=== PATIENT | female | born 1975 | race American Indian/Alaskan Native ===

== ENCOUNTER 2016-12-09 20:07 | Emergency (ER) | payer SELFPAY ==
[2016-12-09 20:14] VITALS: BP 128/75
[2016-12-09] MEDS ORDERED: Sodium Chloride 0.9% 1,000 ML IV ONE ×2 (20:17→22:25)
--- NOTE | 2016-12-09 20:38 | EDM.PDOC ---
ED HPI RENAL/ - General Chief Complaint: Genitourinary Problem Stated Complaint: AMB Time Seen by Provider: 12/09/16 20:30 Source of Information: Reports: Patient History Limitations: Reports: No limitations - History of Present Illness INITIAL COMMENTS - FREE TEXT/NARRATIVE: This 41 yo female patient reports to the ED by [facility] due to lower abdominal pain radiating to her back. The patient reports her symptoms started this morning at 0430, but the patient was taking care of her grandson all day and could not get into the clinic. The patient reports she also started to have diarrhea this morning which has been going around her family. The patient reports she had similar symptoms in July and was diagnosed with a bladder infection. Symptom Onset Date: 12/09/16 Symptom Onset Time: 04:30 Timing/Duration: Reports: Constant, Getting worse Location: Reports: generalized (lower abdomen ratiating to her back) Quality: Reports: ache, burning, cramping Severity: severe Associated Symptoms: Reports: burning, dysuria, diarrhea - Related Data Allergies/ADRs: Allergies Allergy/AdvReac Type Severity Reaction Status Date / Time No Known Allergies Allergy Verified 12/09/16 20:14 Home Meds: Home Meds . [No Known Home Meds] 07/23/16 [History] Past Medical History HEENT History: Reports: Impaired vision - Past Surgical History Female Surgical History: Reports: section Social & Family History - Tobacco Use Smoking Status *Q: Current Every Day Smoker Years of Tobacco use: 30 Packs/Tins Daily: 0.3 Second Hand Smoke Exposure: Yes - Caffeine Use Caffeine Use: Reports: Coffee, Energy drinks, Soda, Tea - Recreational Drug Use Recreational Drug Use: No ED ROS GENERAL - Review of Systems Review Of Systems: ROS reveals no pertinent complaints other than HPI. ED EXAM, RENAL/ - Physical Exam Exam: See Below Exam Limited By: No limitations General Appearance: alert, WD/WN, moderate distress Eye Exam: bilateral eye: EOMI, normal inspection, PERRL Ears: normal external exam, normal canal, hearing grossly normal, normal TMs Nose: normal inspection, normal mucosa, no blood Throat/Mouth: Normal inspection, Normal lips, Normal teeth, Normal gums, Normal oropharynx, Normal voice, No airway compromise Head: atraumatic, normocephalic Neck: normal inspection, supple, non-tender, full range of motion Respiratory/Chest: no respiratory distress, lungs clear, normal breath sounds, no accessory muscle use, chest non-tender Cardiovascular: normal peripheral pulses, regular rate, rhythm, no edema, no gallop, no JVD, no murmur, no rub GI/Abdominal: normal bowel sounds, soft, no organomegaly, no distention, no abnormal bruit, no mass, tender (generalized lower abdominal tenderness) (Female) Exam: Deferred Rectal (Female) Exam: Deferred Back Exam: normal inspection, full range of motion, NT Extremities: normal inspection, normal range of motion, non-tender, normal capillary refill, no pedal edema Neurological: alert, oriented, CN II-XII intact, normal cognition, normal gait, normal reflexes, no motor/sensory deficits Psychiatric: normal affect, normal mood Skin Exam: Warm, Dry, Intact, Normal color, No rash Lymphatic: no adenopathy Course - Vital Signs Last Recorded V/S: Last Vital Signs Temp 36.1 C 12/09/16 20:09 Pulse 102 H 12/09/16 20:09 Resp 20 12/09/16 20:09 BP 128/75 12/09/16 20:09 Pulse Ox 96 12/09/16 20:09 - Orders/Labs/Meds Orders: Active Orders 24 hr Category Date Time Status Sodium Chloride 0.9% [Normal Saline] 1,000 ml Med 12/09/16 22:25 Ordered IV .BOLUS NG [Nasogastric Orogastric Tube Insertion] [OM.PC] Oth 12/09/16 22:25 Ordered Routine Medication Orders Sodium Chloride (Normal Saline) 1,000 mls @ 999 mls/hr IV .BOLUS ONE Stop: 12/09/16 23:25 Last Admin: 12/09/16 22:28 Dose: 999 mls/hr Labs: Laboratory Tests 12/09/16 12/09/16 12/09/16 Range/Units 20:20 20:20 21:25 WBC 8.9 (5.0-10.0) 10^3/uL RBC 4.10 L (4.2-5.4) 10^6/uL Hgb 10.3 L (12.0-16.0) g/dL Hct 32.6 L (37.0-47.0) % MCV 79.5 L (80-100) fL MCH 25.1 L (27.0-34.0) pg MCHC 31.6 L (33.0-35.0) g/dL Plt Count 311 (150-450) 10^3/uL Neut % (Auto) 91.5 H (42.2-75.2) % Lymph % (Auto) 3.1 L (20.5-50.1) % [place] % (Auto) 5.3 (2-8) % Eos % (Auto) 0.0 L (1.0-3.0) % Baso % (Auto) 0.1 (0.0-1.0) % Sodium 134 L (135-145) mmol/L Potassium 3.4 L (3.6-5.0) mmol/L Chloride 102 (101-111) mmol/L Carbon Dioxide 22.0 (21.0-31.0) mmol/L Anion Gap 13.4 BUN 12 (7-18) mg/dL Creatinine 0.7 (0.6-1.3) mg/dL Est Cr Clr Drug Dosing 87.49 mL/min Estimated GFR (MDRD) > 60 BUN/Creatinine Ratio 17.14 Glucose 98 (74-105) mg/dL Calcium 8.6 (8.4-10.2) mg/dl Total Bilirubin 0.3 (0.2-1.0) mg/dL AST 27 (10-42) IU/L ALT 16 (10-60) IU/L Alkaline Phosphatase 53 (42-121) IU/L Total Protein 8.0 (6.7-8.2) g/dl Albumin 4.4 (3.2-5.5) g/dl Globulin 3.6 Albumin/Globulin Ratio 1.22 Urine Color (YELLOW) Urine Appearance (CLEAR) Urine pH (5.0-9.0) Ur Specific [place] (1.005-1.030) Urine Protein (NEGATIVE) Urine Glucose (UA) (NEGATIVE) Urine Ketones (NEGATIVE) Urine Occult Blood (NEGATIVE) Urine Nitrite (NEGATIVE) Urine Bilirubin (NEGATIVE) Urine Urobilinogen (0.2-1.0) mg/dL Ur Leukocyte Esterase (NEGATIVE) Urine RBC /HPF Urine WBC (0-5/HPF) /HPF Ur Epithelial Cells /HPF Urine Bacteria (0-FEW/HPF) /HPF Urine HCG, Qual Urine Opiates Screen Negative (NEGATIVE) Ur Oxycodone Screen Negative (NEGATIVE) Urine Methadone Screen Negative (NEGATIVE) Ur Barbiturates Screen Negative (NEGATIVE) U Tricyclic Antidepress Negative (NEGATIVE) Ur Phencyclidine Scrn Negative (NEGATIVE) Ur Amphetamine Screen Negative (NEGATIVE) U Methamphetamines Scrn Negative (NEGATIVE) Urine MDMA Screen Negative (NEGATIVE) U Benzodiazepines Scrn Negative (NEGATIVE) Urine Cocaine Screen Negative (NEGATIVE) U Marijuana (THC) Screen Negative (NEGATIVE) 12/09/16 12/09/16 Range/Units 21:25 21:25 WBC (5.0-10.0) 10^3/uL RBC (4.2-5.4) 10^6/uL Hgb (12.0-16.0) g/dL Hct (37.0-47.0) % MCV (80-100) fL MCH (27.0-34.0) pg MCHC (33.0-35.0) g/dL Plt Count (150-450) 10^3/uL Neut % (Auto) (42.2-75.2) % Lymph % (Auto) (20.5-50.1) % [place] % (Auto) (2-8) % Eos % (Auto) (1.0-3.0) % Baso % (Auto) (0.0-1.0) % Sodium (135-145) mmol/L Potassium (3.6-5.0) mmol/L Chloride (101-111) mmol/L Carbon Dioxide (21.0-31.0) mmol/L Anion Gap BUN (7-18) mg/dL Creatinine (0.6-1.3) mg/dL Est Cr Clr Drug Dosing mL/min Estimated GFR (MDRD) BUN/Creatinine Ratio Glucose (74-105) mg/dL Calcium (8.4-10.2) mg/dl Total Bilirubin (0.2-1.0) mg/dL AST (10-42) IU/L ALT (10-60) IU/L Alkaline Phosphatase (42-121) IU/L Total Protein (6.7-8.2) g/dl Albumin (3.2-5.5) g/dl Globulin Albumin/Globulin Ratio Urine Color Light yellow (YELLOW) Urine Appearance Clear (CLEAR) Urine pH 5.5 (5.0-9.0) Ur Specific [place] <= 1.005 (1.005-1.030) Urine Protein Negative (NEGATIVE) Urine Glucose (UA) Negative (NEGATIVE) Urine Ketones Negative (NEGATIVE) Urine Occult Blood Moderate H (NEGATIVE) Urine Nitrite Negative (NEGATIVE) Urine Bilirubin Negative (NEGATIVE) Urine Urobilinogen 0.2 (0.2-1.0) mg/dL Ur Leukocyte Esterase Negative (NEGATIVE) Urine RBC 0-5 /HPF Urine WBC 0-5 (0-5/HPF) /HPF Ur Epithelial Cells Few /HPF Urine Bacteria Few (0-FEW/HPF) /HPF Urine HCG, Qual Negative Urine Opiates Screen (NEGATIVE) Ur Oxycodone Screen (NEGATIVE) Urine Methadone Screen (NEGATIVE) Ur Barbiturates Screen (NEGATIVE) U Tricyclic Antidepress (NEGATIVE) Ur Phencyclidine Scrn (NEGATIVE) Ur Amphetamine Screen (NEGATIVE) U Methamphetamines Scrn (NEGATIVE) Urine MDMA Screen (NEGATIVE) U Benzodiazepines Scrn (NEGATIVE) Urine Cocaine Screen (NEGATIVE) U Marijuana (THC) Screen (NEGATIVE) Meds: Medications Generic Name Dose Route Start Last Admin Trade Name Freq PRN Reason Stop Dose Admin Sodium Chloride 1,000 mls @ 999 mls/hr 12/09/16 22:25 12/09/16 22:28 Normal Saline IV 12/09/16 23:25 999 mls/hr .BOLUS ONE Administration Discontinued Medications Generic Name Dose Route Start Last Admin Trade Name Freq PRN Reason Stop Dose Admin Hydromorphone HCl 1 mg 12/09/16 22:23 12/09/16 22:28 Dilaudid IVPUSH 12/09/16 22:24 1 mg ONETIME ONE Administration Sodium Chloride 1,000 mls @ 999 mls/hr 12/09/16 20:17 12/09/16 20:24 Normal Saline IV 12/09/16 21:17 999 mls/hr .BOLUS ONE Administration Iopamidol 100 ml 12/09/16 21:53 12/09/16 22:27 Isovue-300 (61%) IVPUSH 12/09/16 21:54 100 ml ONETIME ONE Administration Ondansetron HCl 4 mg 12/09/16 22:31 12/09/16 22:35 Zofran IV 12/09/16 22:32 4 mg ONETIME ONE Administration - Radiology Interpretation Free Text/Narrative:: CT abdomen - Small bowel obstruction and mild appendicitis per V-rad report. Departure - Departure Time of Disposition: 22:56 Disposition: DC/Tfer to Acute Hospital 02 Condition: fair Clinical Impression: Small bowel obstruction Appendicitis Qualifiers: Appendicitis type: unspecified Qualified Code(s): K37 - Unspecified appendicitis Forms: ED Department Discharge, Interfacility Transfer EMTALA Care Plan Goals: Discussed the history, examination, lab and CT results with Dr. Torrez ([facility] ED provider in [place]). Dr. Torrez accepted the patient for continued evaluation and further management. The patient will be transferred by [facility]. - My Orders Last 24 Hours: My Active Orders 12/09/16 22:25 Sodium Chloride 0.9% [Normal Saline] 1,000 ml IV .BOLUS NG [Nasogastric Orogastric Tube Insertion] [OM.PC] Routine - Assessment/Plan Last 24 Hours: My Active Orders 12/09/16 22:25 Sodium Chloride 0.9% [Normal Saline] 1,000 ml IV .BOLUS NG [Nasogastric Orogastric Tube Insertion] [OM.PC] Routine
[2016-12-09 20:46] LABS: CHLORIDE,CL 102 mmol/L (101-111); SODIUM,NA 134 mmol/L (135-145)
[2016-12-09] MEDS ORDERED: Iopamidol 612 MG/ML 100 ML Bottle IVPUSH ONE (21:53)
[2016-12-09] MEDS ORDERED: HYDROmorphone 1 MG/ML Syringe IVPUSH ONE (22:23)
[2016-12-09] MEDS ORDERED: Ondansetron 4 MG/2 ML SDV IV ONE (22:31)
== END 2016-12-09 23:45 ==
LOC: DL.ED 20:07
DX: K37 Unspecified appendicitis (principal); K56.60 Unspecified intestinal obstruction; F17.210 Nicotine dependence, cigarettes, uncomplicated
CPT/HCPCS: 36415; 74177; 80053; 80305; 81001; 81025; 85025; 96361; 96374; 96375; 99285; J1170; J2405; J7030; Q9967; 99284

== ENCOUNTER 2019-02-09 23:44 | Inpatient (IN) | payer SELFPAY ==
[2019-02-10] MEDS ORDERED: Sodium Chloride 0.9% 1,000 ML IV ONE (00:06)
[2019-02-10] MEDS: Sodium Chloride 0.9% 10 ML Syringe FLUSH PRN (00:15)
--- NOTE | 2019-02-10 00:26 | EDM.PDOC ---
ED HPI GENERAL MEDICAL PROBLEM - General Chief Complaint: Flank Pain Stated Complaint: KIDNEY PAIN [id number] Time Seen by Provider: 02/10/19 00:26 Source of Information: Reports: Patient, RN, RN Notes Reviewed History Limitations: Reports: No Limitations - History of Present Illness INITIAL COMMENTS - FREE TEXT/NARRATIVE: Pt to ER with c/o abdominal pain and bilateral flank pain. Patient states she noticed some burning with urination yesterday and it has progressively gotten worse. Rates pain 8/10. Admits to chills. Denies N/V/D. States she is currently having her period, and voiding very small amounts. Denies kidney stones in the past. Onset: Gradual Duration: Constant, Getting Worse Location: Reports: Abdomen, Back Quality: Reports: Burning, Sharp, Throbbing Severity: Moderate Improves with: Reports: None Worsens with: Reports: None Associated Symptoms: Reports: Fever/Chills Flank Pain Score (Numeric/FACES): 7 Headache Pain Score (Numeric/FACES): 6 - Related Data Allergies Allergy/AdvReac Type Severity Reaction Status Date / Time No Known Allergies Allergy Verified 02/09/19 23:49 Home Meds: Home Meds . [No Known Home Meds] 07/23/16 [History] Past Medical History HEENT History: Reports: Impaired Vision - Past Surgical History Female Surgical History: Reports: Section Social & Family History - Family History Family Medical History: Noncontributory - Tobacco Use Smoking Status *Q: Current Some Day Smoker Years of Tobacco use: 14 Packs/Tins Daily: 4 - Caffeine Use Caffeine Use: Reports: Coffee, Soda, Tea - Recreational Drug Use Recreational Drug Use: No ED ROS GENERAL - Review of Systems Review Of Systems: ROS reveals no pertinent complaints other than HPI. ED EXAM, RENAL/ - Physical Exam Exam: See Below Exam Limited By: No Limitations General Appearance: Alert, WD/WN, Moderate Distress Eye Exam: Bilateral Eye: EOMI, Normal Inspection Ears: Normal External Exam, Hearing Grossly Normal Nose: Normal Inspection Throat/Mouth: Normal Inspection, Normal Voice, No Airway Compromise Head: Atraumatic, Normocephalic Neck: Normal Inspection, Supple, Non-Tender, Full Range of Motion Respiratory/Chest: No Respiratory Distress, Lungs Clear, Normal Breath Sounds, No Accessory Muscle Use, Chest Non-Tender Cardiovascular: Normal Peripheral Pulses, Regular Rate, Rhythm, No Edema, No Gallop, No JVD, No Murmur, No Rub GI/Abdominal: Normal Bowel Sounds, Soft, Tender (Female) Exam: Deferred Rectal (Female) Exam: Deferred Back Exam: CVA Tenderness (L), CVA Tenderness (R), Decreased Range of Motion Extremities: Normal Inspection, Normal Range of Motion, Non-Tender, No Pedal Edema, Normal Capillary Refill Neurological: Alert, Oriented, CN II-XII Intact, Normal Cognition, Normal Gait, Normal Reflexes, No Motor/Sensory Deficits Psychiatric: Anxious, Tearful Skin Exam: Warm, Dry, Intact, Normal Color, No Rash Lymphatic: No Adenopathy Course - Vital Signs Last Recorded V/S: Last Vital Signs Temp 98.2 F 02/09/19 23:54 Pulse 104 H 02/09/19 23:54 Resp 18 02/09/19 23:54 BP 135/72 02/09/19 23:54 Pulse Ox 100 02/09/19 23:54 - Orders/Labs/Meds Orders: Active Orders 24 hr Category Date Time Status Peripheral IV Care [RC] . DIRECTED Care 02/10/19 00:06 Active CULTURE BLOOD [BC] Stat Lab 02/10/19 02:10 Ordered CULTURE BLOOD [BC] Stat Lab 02/10/19 02:10 Ordered CULTURE URINE [RM] Routine Lab 02/09/19 23:51 Received LACTIC ACID [CHEM] Stat Lab 02/10/19 02:09 Ordered Sodium Chloride 0.9% [Saline Flush] Med 02/10/19 00:05 Active 10 ml FLUSH ASDIRECTED PRN Blood Culture x2 Reflex Set [OM.PC] Stat Oth 02/10/19 02:10 Ordered Peripheral IV Insertion Adult [OM.PC] Stat Oth 02/10/19 00:05 Ordered Medication Orders Sodium Chloride (Saline Flush) 10 ml FLUSH ASDIRECTED PRN PRN Reason: Keep Vein Open Last Admin: 02/10/19 00:15 Dose: 10 ml Labs: Laboratory Tests 02/09/19 02/09/19 02/09/19 Range/Units 23:51 23:51 23:51 WBC (5.0-10.0) 10^3/uL RBC (4.2-5.4) 10^6/uL Hgb (12.0-16.0) g/dL Hct (37.0-47.0) % MCV (80-100) fL MCH (27.0-34.0) pg MCHC (33.0-35.0) g/dL Plt Count (150-450) 10^3/uL Neut % (Auto) (42.2-75.2) % Lymph % (Auto) (20.5-50.1) % [place] % (Auto) (2-8) % Eos % (Auto) (1.0-3.0) % Baso % (Auto) (0.0-1.0) % Sodium (135-145) mmol/L Potassium (3.6-5.0) mmol/L Chloride (101-111) mmol/L Carbon Dioxide (21.0-31.0) mmol/L Anion Gap BUN (7-18) mg/dL Creatinine (0.6-1.3) mg/dL Est Cr Clr Drug Dosing mL/min Estimated GFR (MDRD) BUN/Creatinine Ratio Glucose (74-105) mg/dL Calcium (8.4-10.2) mg/dl Total Bilirubin (0.2-1.0) mg/dL AST (10-42) IU/L ALT (10-60) IU/L Alkaline Phosphatase (42-121) IU/L C-Reactive Protein (0.0-1.3) mg/dL Total Protein (6.7-8.2) g/dl Albumin (3.2-5.5) g/dl Globulin Albumin/Globulin Ratio Urine Color Red (YELLOW) Urine Appearance Turbid (CLEAR) Urine pH 6.0 (5.0-9.0) Ur Specific [place] 1.015 (1.005-1.030) Urine Protein >=300 H (NEGATIVE) Urine Glucose (UA) Negative (NEGATIVE) Urine Ketones Negative (NEGATIVE) Urine Occult Blood Large H (NEGATIVE) Urine Nitrite Positive H (NEGATIVE) Urine Bilirubin Small H (NEGATIVE) Urine Urobilinogen 1.0 (0.2-1.0) mg/dL Ur Leukocyte Esterase Large H (NEGATIVE) Urine RBC Packed H /HPF Urine WBC >100 H (0-5/HPF) /HPF Ur Epithelial Cells Moderate H (NOT SEEN) /HPF Amorphous Sediment Few (NOT SEEN) /HPF Urine Bacteria Moderate H (0-FEW/HPF) /HPF Urine Mucus Not seen (NOT SEEN) /LPF Urinalysis Comment See note Urine HCG, Qual Negative Urine Opiates Screen Negative (NEGATIVE) Ur Oxycodone Screen Negative (NEGATIVE) Urine Methadone Screen Negative (NEGATIVE) Ur Barbiturates Screen Negative (NEGATIVE) U Tricyclic Antidepress Positive H (NEGATIVE) Ur Phencyclidine Scrn Negative (NEGATIVE) Ur Amphetamine Screen Negative (NEGATIVE) U Methamphetamines Scrn Positive H (NEGATIVE) Urine MDMA Screen Negative (NEGATIVE) U Benzodiazepines Scrn Negative (NEGATIVE) Urine Cocaine Screen Negative (NEGATIVE) U Marijuana (THC) Screen Negative (NEGATIVE) Ethyl Alcohol mg/dL 02/10/19 02/10/19 02/10/19 Range/Units 00:15 00:15 00:15 WBC 11.1 H (5.0-10.0) 10^3/uL RBC 4.07 L (4.2-5.4) 10^6/uL Hgb 8.7 L D (12.0-16.0) g/dL Hct 29.1 L (37.0-47.0) % MCV 71.5 L D (80-100) fL MCH 21.4 L (27.0-34.0) pg MCHC 29.9 L (33.0-35.0) g/dL Plt Count 308 (150-450) 10^3/uL Neut % (Auto) 91.4 H (42.2-75.2) % Lymph % (Auto) 3.0 L (20.5-50.1) % [place] % (Auto) 5.4 (2-8) % Eos % (Auto) 0.1 L (1.0-3.0) % Baso % (Auto) 0.1 (0.0-1.0) % Sodium 131 L (135-145) mmol/L Potassium 3.3 L (3.6-5.0) mmol/L Chloride 99 L (101-111) mmol/L Carbon Dioxide 20.0 L (21.0-31.0) mmol/L Anion Gap 15.3 BUN 7 (7-18) mg/dL Creatinine 0.7 (0.6-1.3) mg/dL Est Cr Clr Drug Dosing 84.84 mL/min Estimated GFR (MDRD) > 60 BUN/Creatinine Ratio 10.00 Glucose 128 H (74-105) mg/dL Calcium 8.4 (8.4-10.2) mg/dl Total Bilirubin 0.5 (0.2-1.0) mg/dL AST 41 (10-42) IU/L ALT 54 (10-60) IU/L Alkaline Phosphatase 134 H (42-121) IU/L C-Reactive Protein (0.0-1.3) mg/dL Total Protein 7.6 (6.7-8.2) g/dl Albumin 3.7 (3.2-5.5) g/dl Globulin 3.9 Albumin/Globulin Ratio 0.95 Urine Color (YELLOW) Urine Appearance (CLEAR) Urine pH (5.0-9.0) Ur Specific [place] (1.005-1.030) Urine Protein (NEGATIVE) Urine Glucose (UA) (NEGATIVE) Urine Ketones (NEGATIVE) Urine Occult Blood (NEGATIVE) Urine Nitrite (NEGATIVE) Urine Bilirubin (NEGATIVE) Urine Urobilinogen (0.2-1.0) mg/dL Ur Leukocyte Esterase (NEGATIVE) Urine RBC /HPF Urine WBC (0-5/HPF) /HPF Ur Epithelial Cells (NOT SEEN) /HPF Amorphous Sediment (NOT SEEN) /HPF Urine Bacteria (0-FEW/HPF) /HPF Urine Mucus (NOT SEEN) /LPF Urinalysis Comment Urine HCG, Qual Urine Opiates Screen (NEGATIVE) Ur Oxycodone Screen (NEGATIVE) Urine Methadone Screen (NEGATIVE) Ur Barbiturates Screen (NEGATIVE) U Tricyclic Antidepress (NEGATIVE) Ur Phencyclidine Scrn (NEGATIVE) Ur Amphetamine Screen (NEGATIVE) U Methamphetamines Scrn (NEGATIVE) Urine MDMA Screen (NEGATIVE) U Benzodiazepines Scrn (NEGATIVE) Urine Cocaine Screen (NEGATIVE) U Marijuana (THC) Screen (NEGATIVE) Ethyl Alcohol < 5 mg/dL 02/10/19 Range/Units 00:15 WBC (5.0-10.0) 10^3/uL RBC (4.2-5.4) 10^6/uL Hgb (12.0-16.0) g/dL Hct (37.0-47.0) % MCV (80-100) fL MCH (27.0-34.0) pg MCHC (33.0-35.0) g/dL Plt Count (150-450) 10^3/uL Neut % (Auto) (42.2-75.2) % Lymph % (Auto) (20.5-50.1) % [place] % (Auto) (2-8) % Eos % (Auto) (1.0-3.0) % Baso % (Auto) (0.0-1.0) % Sodium (135-145) mmol/L Potassium (3.6-5.0) mmol/L Chloride (101-111) mmol/L Carbon Dioxide (21.0-31.0) mmol/L Anion Gap BUN (7-18) mg/dL Creatinine (0.6-1.3) mg/dL Est Cr Clr Drug Dosing mL/min Estimated GFR (MDRD) BUN/Creatinine Ratio Glucose (74-105) mg/dL Calcium (8.4-10.2) mg/dl Total Bilirubin (0.2-1.0) mg/dL AST (10-42) IU/L ALT (10-60) IU/L Alkaline Phosphatase (42-121) IU/L C-Reactive Protein > 20.0 H (0.0-1.3) mg/dL Total Protein (6.7-8.2) g/dl Albumin (3.2-5.5) g/dl Globulin Albumin/Globulin Ratio Urine Color (YELLOW) Urine Appearance (CLEAR) Urine pH (5.0-9.0) Ur Specific [place] (1.005-1.030) Urine Protein (NEGATIVE) Urine Glucose (UA) (NEGATIVE) Urine Ketones (NEGATIVE) Urine Occult Blood (NEGATIVE) Urine Nitrite (NEGATIVE) Urine Bilirubin (NEGATIVE) Urine Urobilinogen (0.2-1.0) mg/dL Ur Leukocyte Esterase (NEGATIVE) Urine RBC /HPF Urine WBC (0-5/HPF) /HPF Ur Epithelial Cells (NOT SEEN) /HPF Amorphous Sediment (NOT SEEN) /HPF Urine Bacteria (0-FEW/HPF) /HPF Urine Mucus (NOT SEEN) /LPF Urinalysis Comment Urine HCG, Qual Urine Opiates Screen (NEGATIVE) Ur Oxycodone Screen (NEGATIVE) Urine Methadone Screen (NEGATIVE) Ur Barbiturates Screen (NEGATIVE) U Tricyclic Antidepress (NEGATIVE) Ur Phencyclidine Scrn (NEGATIVE) Ur Amphetamine Screen (NEGATIVE) U Methamphetamines Scrn (NEGATIVE) Urine MDMA Screen (NEGATIVE) U Benzodiazepines Scrn (NEGATIVE) Urine Cocaine Screen (NEGATIVE) U Marijuana (THC) Screen (NEGATIVE) Ethyl Alcohol mg/dL Meds: Medications Generic Name Dose Route Start Last Admin Trade Name Daisy PRN Reason Stop Dose Admin Sodium Chloride 10 ml 02/10/19 00:05 02/10/19 00:15 Saline Flush FLUSH 10 ml ASDIRECTED PRN Administration Keep Vein Open Discontinued Medications Generic Name Dose Route Start Last Admin Trade Name Daisy PRN Reason Stop Dose Admin Hydromorphone HCl 1 mg 02/10/19 01:21 02/10/19 01:28 Dilaudid IVPUSH 02/10/19 01:22 1 mg ONETIME ONE Administration Sodium Chloride 1,000 mls @ 999 mls/hr 02/10/19 00:06 02/10/19 00:26 Normal Saline IV 02/10/19 01:06 999 mls/hr .BOLUS ONE Administration Ceftriaxone Sodium 1 gm/ 50 mls @ 50 mls/hr 02/10/19 00:59 02/10/19 01:30 Sodium Chloride IV 02/10/19 01:58 50 mls/hr ONETIME ONE Administration Iopamidol 75 ml 02/10/19 00:56 02/10/19 01:10 Isovue-300 (61%) IVPUSH 02/10/19 00:57 75 ml ONETIME ONE Administration Ketorolac Tromethamine 30 mg 02/10/19 00:30 02/10/19 00:35 Toradol IVPUSH 02/10/19 00:31 30 mg ONETIME ONE Administration - Radiology Interpretation Free Text/Narrative:: CT Abdomen/Pelvis with contrast: FINDINGS: Lungs: Bibasilar subsegmental atelectasis. ABDOMEN: Liver: Normal. No mass. Gallbladder and bile ducts: Normal. No calcified stones. No ductal dilation. Pancreas: Normal. No ductal dilation. Spleen: Normal. No splenomegaly. Adrenals: Normal. No mass. Kidneys and ureters: Edematous swelling of the right kidney and perinephric/ periureteral fat stranding. Thickening and hyper-enhancement of the bilateral ureters. No radiopaque urinary tract calculus is visualized. Stomach and bowel: Normal. No obstruction. No mucosal thickening. Appendix: A normal appendix is identified. PELVIS: Bladder: Diffuse thickening of the urinary bladder wall. Reproductive: Unremarkable as visualized. ABDOMEN and PELVIS: Intraperitoneal space: Normal. No free air. No significant fluid collection. Bones/joints: No acute fracture. No dislocation. Soft tissues: Unremarkable. Vasculature: Normal. No abdominal aortic aneurysm. Lymph nodes: Normal. No enlarged lymph nodes. IMPRESSION: Edematous swelling of the right kidney and right perinephric/periureteral fat stranding. Thickening and hyper-enhancement of the bilateral ureters. Diffuse thickening of the urinary bladder wall. No radiopaque urinary tract calculus is visualized. Findings most likely represent an ascending urinary tract infection. Thank you for allowing us to participate in the care of your patient. Dictated and Authenticated by: Jorge L Coy MD 02/10/2019 1:48 AM Central Time ([place] & [place]) See rad report - Re-Assessments/Exams Free Text/Narrative Re-Assessment/Exam: 02/10/19 02:10 Pt case discussed with Dr. Ramsay who agreed to accept the patient for inpatient admission. Departure - Departure Time of Disposition: 02:10 Disposition: Admitted As Inpatient 66 Condition: Fair Clinical Impression: Pyelonephritis, UTI, Urinary tract infectious disease - Discharge Information *PRESCRIPTION DRUG MONITORING PROGRAM REVIEWED*: No *COPY OF PRESCRIPTION DRUG MONITORING REPORT IN PATIENT DMITRY: No Forms: ED Department Discharge - My Orders Last 24 Hours: My Active Orders 02/09/19 23:51 CULTURE URINE [RM] Routine 02/10/19 00:05 Sodium Chloride 0.9% [Saline Flush] 10 ml FLUSH ASDIRECTED PRN Peripheral IV Insertion Adult [OM.PC] Stat 02/10/19 00:06 Peripheral IV Care [RC] . DIRECTED 02/10/19 02:09 LACTIC ACID [CHEM] Stat 02/10/19 02:10 CULTURE BLOOD [BC] Stat CULTURE BLOOD [BC] Stat Blood Culture x2 Reflex Set [OM.PC] Stat - Assessment/Plan Last 24 Hours: My Active Orders 02/09/19 23:51 CULTURE URINE [RM] Routine 02/10/19 00:05 Sodium Chloride 0.9% [Saline Flush] 10 ml FLUSH ASDIRECTED PRN Peripheral IV Insertion Adult [OM.PC] Stat 02/10/19 00:06 Peripheral IV Care [RC] . DIRECTED 02/10/19 02:09 LACTIC ACID [CHEM] Stat 02/10/19 02:10 CULTURE BLOOD [BC] Stat CULTURE BLOOD [BC] Stat Blood Culture x2 Reflex Set [OM.PC] Stat
[2019-02-10] MEDS ORDERED: Ketorolac 30 MG/ML SDV IVPUSH ONE (00:30)
[2019-02-10 00:49] LABS: ANION GAP 15.3; CHLORIDE,CL 99 mmol/L (101-111); SODIUM,NA 131 mmol/L (135-145)
[2019-02-10] MEDS ORDERED: Iopamidol 612 MG/ML 75 ML Bottle IVPUSH ONE (00:56)
[2019-02-10] MEDS ORDERED: cefTRIAXone 1 GM in Sodium Chloride 0.9% 50 ML IV ONE (00:59)
[2019-02-10] MEDS ORDERED: HYDROmorphone 1 MG/ML Syringe IVPUSH ONE (01:21)
[2019-02-10] MEDS: Sodium Chloride 0.9% 1,000 ML IV SCH ×2 (03:11→14:36)
[2019-02-10] MEDS: Morphine 2 MG/ML Syringe IVPUSH PRN ×4 (04:46→14:33)
[2019-02-10] MEDS ORDERED: Ondansetron 4 MG Tab.DIS PO PRN (05:22)
[2019-02-10] MEDS ORDERED: Potassium Chloride 10 MEQ Tab.ER PO ONE (05:26)
--- NOTE | 2019-02-10 05:34 | PCM.HP ---
H&P History of Present Illness - General Date of Service: 02/10/19 Admit Problem/Dx: Admission Diagnosis/Problem Admission Diagnosis/Problem Pyelonephritis Source of Information: Patient - History of Present Illness Initial Comments - Free Text/Narative: 44-year-old with no past medical history.No history of kidney stone The patient presented with chills, subjective fever, urinary burning the started to 3 days prior to admission and has been getting progressively worse. There is associated bilateral lower back pain. Pain has been moderate to severe. No chest pain, shortness of breath. In the emergency room the patient was noted to have a pyelonephritis. Received ceftriaxone. Flank Pain Score (Numeric/FACES): 7 Headache Pain Score (Numeric/FACES): 6 - Related Data Allergies/Adverse Reactions: Allergies Allergy/AdvReac Type Severity Reaction Status Date / Time No Known Allergies Allergy Verified 02/09/19 23:49 Home Medications: Home Meds . [No Known Home Meds] 07/23/16 [History] Past Medical History HEENT History: Reports: Impaired Vision - Past Surgical History Female Surgical History: Reports: Section Social & Family History - Family History Family Medical History: Noncontributory - Tobacco Use Smoking Status *Q: Current Some Day Smoker Years of Tobacco use: 14 Packs/Tins Daily: 4 - Caffeine Use Caffeine Use: Reports: Coffee, Soda, Tea - Recreational Drug Use Recreational Drug Use: No H&P Review of Systems - Review of Systems: Review Of Systems: See Below General: Reports: Fever, Chills (Subjective) Pulmonary: Denies: Shortness of Breath Cardiovascular: Denies: Chest Pain, Edema Gastrointestinal: Denies: Abdominal Pain Genitourinary: Reports: Dysuria, Frequency, Burning, Urgency, Flank Pain ( Bilateral) Psychiatric: Denies: Confusion Exam - Exam Exam: See Below - Vital Signs Vital Signs: Last Vital Signs Temp 36.7 C 02/10/19 02:29 Pulse 98 02/10/19 02:29 Resp 18 02/10/19 02:29 BP 102/61 02/10/19 02:29 Pulse Ox 96 02/10/19 02:29 Weight: 75.16 kg - Exam General: Alert, Oriented Neck: Supple Lungs: Clear to Auscultation, Normal Respiratory Effort Cardiovascular: Regular Rate, Regular Rhythm, Tachycardia GI/Abdominal Exam: Normal Bowel Sounds, Soft, Non-Tender (Female) Exam: Other (Bilateral flank tenderness) Extremities: No Pedal Edema Skin: Warm, Dry Neuro Extensive - Mental Status: Alert, Oriented x3, Normal Mood/Affect - Patient Data Lab Results Last 24 hrs: Laboratory Results - last 24 hr 02/09/19 02/09/19 02/09/19 Range/Units 23:51 23:51 23:51 WBC (5.0-10.0) 10^3/uL RBC (4.2-5.4) 10^6/uL Hgb (12.0-16.0) g/dL Hct (37.0-47.0) % MCV (80-100) fL MCH (27.0-34.0) pg MCHC (33.0-35.0) g/dL Plt Count (150-450) 10^3/uL Neut % (Auto) (42.2-75.2) % Lymph % (Auto) (20.5-50.1) % [place] % (Auto) (2-8) % Eos % (Auto) (1.0-3.0) % Baso % (Auto) (0.0-1.0) % Sodium (135-145) mmol/L Potassium (3.6-5.0) mmol/L Chloride (101-111) mmol/L Carbon Dioxide (21.0-31.0) mmol/L Anion Gap BUN (7-18) mg/dL Creatinine (0.6-1.3) mg/dL Est Cr Clr Drug Dosing mL/min Estimated GFR (MDRD) BUN/Creatinine Ratio Glucose (74-105) mg/dL Lactic Acid (0.5-2.2) mmol/L Calcium (8.4-10.2) mg/dl Total Bilirubin (0.2-1.0) mg/dL AST (10-42) IU/L ALT (10-60) IU/L Alkaline Phosphatase (42-121) IU/L C-Reactive Protein (0.0-1.3) mg/dL Total Protein (6.7-8.2) g/dl Albumin (3.2-5.5) g/dl Globulin Albumin/Globulin Ratio Urine Color Red (YELLOW) Urine Appearance Turbid (CLEAR) Urine pH 6.0 (5.0-9.0) Ur Specific [place] 1.015 (1.005-1.030) Urine Protein >=300 H (NEGATIVE) Urine Glucose (UA) Negative (NEGATIVE) Urine Ketones Negative (NEGATIVE) Urine Occult Blood Large H (NEGATIVE) Urine Nitrite Positive H (NEGATIVE) Urine Bilirubin Small H (NEGATIVE) Urine Urobilinogen 1.0 (0.2-1.0) mg/dL Ur Leukocyte Esterase Large H (NEGATIVE) Urine RBC Packed H /HPF Urine WBC >100 H (0-5/HPF) /HPF Ur Epithelial Cells Moderate H (NOT SEEN) /HPF Amorphous Sediment Few (NOT SEEN) /HPF Urine Bacteria Moderate H (0-FEW/HPF) /HPF Urine Mucus Not seen (NOT SEEN) /LPF Urinalysis Comment See note Urine HCG, Qual Negative Urine Opiates Screen Negative (NEGATIVE) Ur Oxycodone Screen Negative (NEGATIVE) Urine Methadone Screen Negative (NEGATIVE) Ur Barbiturates Screen Negative (NEGATIVE) U Tricyclic Antidepress Positive H (NEGATIVE) Ur Phencyclidine Scrn Negative (NEGATIVE) Ur Amphetamine Screen Negative (NEGATIVE) U Methamphetamines Scrn Positive H (NEGATIVE) Urine MDMA Screen Negative (NEGATIVE) U Benzodiazepines Scrn Negative (NEGATIVE) Urine Cocaine Screen Negative (NEGATIVE) U Marijuana (THC) Screen Negative (NEGATIVE) Ethyl Alcohol mg/dL 02/10/19 02/10/19 02/10/19 Range/Units 00:15 00:15 00:15 WBC 11.1 H (5.0-10.0) 10^3/uL RBC 4.07 L (4.2-5.4) 10^6/uL Hgb 8.7 L D (12.0-16.0) g/dL Hct 29.1 L (37.0-47.0) % MCV 71.5 L D (80-100) fL MCH 21.4 L (27.0-34.0) pg MCHC 29.9 L (33.0-35.0) g/dL Plt Count 308 (150-450) 10^3/uL Neut % (Auto) 91.4 H (42.2-75.2) % Lymph % (Auto) 3.0 L (20.5-50.1) % [place] % (Auto) 5.4 (2-8) % Eos % (Auto) 0.1 L (1.0-3.0) % Baso % (Auto) 0.1 (0.0-1.0) % Sodium 131 L (135-145) mmol/L Potassium 3.3 L (3.6-5.0) mmol/L Chloride 99 L (101-111) mmol/L Carbon Dioxide 20.0 L (21.0-31.0) mmol/L Anion Gap 15.3 BUN 7 (7-18) mg/dL Creatinine 0.7 (0.6-1.3) mg/dL Est Cr Clr Drug Dosing 84.84 mL/min Estimated GFR (MDRD) > 60 BUN/Creatinine Ratio 10.00 Glucose 128 H (74-105) mg/dL Lactic Acid (0.5-2.2) mmol/L Calcium 8.4 (8.4-10.2) mg/dl Total Bilirubin 0.5 (0.2-1.0) mg/dL AST 41 (10-42) IU/L ALT 54 (10-60) IU/L Alkaline Phosphatase 134 H (42-121) IU/L C-Reactive Protein (0.0-1.3) mg/dL Total Protein 7.6 (6.7-8.2) g/dl Albumin 3.7 (3.2-5.5) g/dl Globulin 3.9 Albumin/Globulin Ratio 0.95 Urine Color (YELLOW) Urine Appearance (CLEAR) Urine pH (5.0-9.0) Ur Specific [place] (1.005-1.030) Urine Protein (NEGATIVE) Urine Glucose (UA) (NEGATIVE) Urine Ketones (NEGATIVE) Urine Occult Blood (NEGATIVE) Urine Nitrite (NEGATIVE) Urine Bilirubin (NEGATIVE) Urine Urobilinogen (0.2-1.0) mg/dL Ur Leukocyte Esterase (NEGATIVE) Urine RBC /HPF Urine WBC (0-5/HPF) /HPF Ur Epithelial Cells (NOT SEEN) /HPF Amorphous Sediment (NOT SEEN) /HPF Urine Bacteria (0-FEW/HPF) /HPF Urine Mucus (NOT SEEN) /LPF Urinalysis Comment Urine HCG, Qual Urine Opiates Screen (NEGATIVE) Ur Oxycodone Screen (NEGATIVE) Urine Methadone Screen (NEGATIVE) Ur Barbiturates Screen (NEGATIVE) U Tricyclic Antidepress (NEGATIVE) Ur Phencyclidine Scrn (NEGATIVE) Ur Amphetamine Screen (NEGATIVE) U Methamphetamines Scrn (NEGATIVE) Urine MDMA Screen (NEGATIVE) U Benzodiazepines Scrn (NEGATIVE) Urine Cocaine Screen (NEGATIVE) U Marijuana (THC) Screen (NEGATIVE) Ethyl Alcohol < 5 mg/dL 02/10/19 02/10/19 Range/Units 00:15 00:15 WBC (5.0-10.0) 10^3/uL RBC (4.2-5.4) 10^6/uL Hgb (12.0-16.0) g/dL Hct (37.0-47.0) % MCV (80-100) fL MCH (27.0-34.0) pg MCHC (33.0-35.0) g/dL Plt Count (150-450) 10^3/uL Neut % (Auto) (42.2-75.2) % Lymph % (Auto) (20.5-50.1) % [place] % (Auto) (2-8) % Eos % (Auto) (1.0-3.0) % Baso % (Auto) (0.0-1.0) % Sodium (135-145) mmol/L Potassium (3.6-5.0) mmol/L Chloride (101-111) mmol/L Carbon Dioxide (21.0-31.0) mmol/L Anion Gap BUN (7-18) mg/dL Creatinine (0.6-1.3) mg/dL Est Cr Clr Drug Dosing mL/min Estimated GFR (MDRD) BUN/Creatinine Ratio Glucose (74-105) mg/dL Lactic Acid 1.7 (0.5-2.2) mmol/L Calcium (8.4-10.2) mg/dl Total Bilirubin (0.2-1.0) mg/dL AST (10-42) IU/L ALT (10-60) IU/L Alkaline Phosphatase (42-121) IU/L C-Reactive Protein > 20.0 H (0.0-1.3) mg/dL Total Protein (6.7-8.2) g/dl Albumin (3.2-5.5) g/dl Globulin Albumin/Globulin Ratio Urine Color (YELLOW) Urine Appearance (CLEAR) Urine pH (5.0-9.0) Ur Specific [place] (1.005-1.030) Urine Protein (NEGATIVE) Urine Glucose (UA) (NEGATIVE) Urine Ketones (NEGATIVE) Urine Occult Blood (NEGATIVE) Urine Nitrite (NEGATIVE) Urine Bilirubin (NEGATIVE) Urine Urobilinogen (0.2-1.0) mg/dL Ur Leukocyte Esterase (NEGATIVE) Urine RBC /HPF Urine WBC (0-5/HPF) /HPF Ur Epithelial Cells (NOT SEEN) /HPF Amorphous Sediment (NOT SEEN) /HPF Urine Bacteria (0-FEW/HPF) /HPF Urine Mucus (NOT SEEN) /LPF Urinalysis Comment Urine HCG, Qual Urine Opiates Screen (NEGATIVE) Ur Oxycodone Screen (NEGATIVE) Urine Methadone Screen (NEGATIVE) Ur Barbiturates Screen (NEGATIVE) U Tricyclic Antidepress (NEGATIVE) Ur Phencyclidine Scrn (NEGATIVE) Ur Amphetamine Screen (NEGATIVE) U Methamphetamines Scrn (NEGATIVE) Urine MDMA Screen (NEGATIVE) U Benzodiazepines Scrn (NEGATIVE) Urine Cocaine Screen (NEGATIVE) U Marijuana (THC) Screen (NEGATIVE) Ethyl Alcohol mg/dL Result Diagrams: 02/10/19 00:15 02/10/19 00:15 Tej Results Last 24 hrs: Microbiology 02/10/19 00:18 Anaerobic Blood Culture - Final Blood - Venous - Lab Draw - Problem List (1) Anemia SNOMED Code(s): 261786943 ICD Code: D64.9 - ANEMIA, UNSPECIFIED Status: Acute Current Visit: No Qualifiers: Anemia type: iron 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) (2) Pyelonephritis SNOMED Code(s): 17763522 ICD Code: N12 - TUBULO-INTERSTITIAL NEPHRITIS, NOT SPCF ACUTE OR CHRONIC Status: Acute Current Visit: No (3) UTI, Urinary tract infectious disease SNOMED Code(s): 76488331 ICD Code: N39.0 - URINARY TRACT INFECTION, SITE NOT SPECIFIED Status: Acute Current Visit: No Problem List Initiated/Reviewed/Updated: Yes Orders Last 24hrs: Active Orders 24 hr Category Date Time Status Patient Status [ADT] Routine ADT 02/10/19 05:22 Ordered Antiembolic Devices [RC] PER UNIT ROUTINE Care 02/10/19 05:24 Ordered Oxygen Therapy [RC] PRN Care 02/10/19 05:22 Ordered Peripheral IV Care [RC] . DIRECTED Care 02/10/19 00:06 Active Up ad Meredith [RC] ASDIRECTED Care 02/10/19 05:22 Ordered VTE/DVT Education [RC] PER UNIT ROUTINE Care 02/10/19 05:22 Ordered Vital Signs [RC] Q4H Care 02/10/19 05:22 Ordered Regular Diet [DIET] Diet 02/10/19 Breakfast Active BASIC METABOLIC PANEL,BMP [CHEM] AM Lab 02/11/19 05:11 Ordered CBC WITH AUTO DIFF [HEME] AM Lab 02/10/19 05:11 Ordered CBC WITH AUTO DIFF [HEME] AM Lab 02/11/19 05:11 Ordered CBC WITH AUTO DIFF [HEME] AM Lab 02/12/19 05:11 Ordered CULTURE BLOOD [BC] Stat Lab 02/10/19 00:15 Received CULTURE BLOOD [BC] Stat Lab 02/10/19 00:18 Results CULTURE URINE [RM] Routine Lab 02/09/19 23:51 Received Acetaminophen [Tylenol] Med 02/10/19 05:22 Ordered 650 mg PO Q4H PRN Docusate Sodium [Colace] Med 02/10/19 05:22 Ordered 100 mg PO BID PRN Heparin Sodium Med 02/10/19 06:00 Ordered 5,000 units SUBCUT Q8HR Ibuprofen [Motrin] Med 02/10/19 05:22 Ordered 400 mg PO Q6H PRN Morphine Med 02/10/19 02:43 Active 2 mg IVPUSH Q2H PRN Ondansetron [Zofran ODT] Med 02/10/19 05:22 Ordered 4 mg PO Q6H PRN Potassium Chloride [Klor-Con 10] Med 02/10/19 05:26 Once 40 meq PO ONETIME ONE Sodium Chloride 0.9% [Normal Saline] 1,000 ml Med 02/10/19 02:45 Active IV ASDIRECTED Sodium Chloride 0.9% [Saline Flush] Med 02/10/19 00:05 Active 10 ml FLUSH ASDIRECTED PRN Zolpidem [Ambien] Med 02/10/19 05:22 Ordered 5 mg PO BEDTIME PRN Antiembolic Hose [OM.PC] Per Unit Routine Oth 02/10/19 05:23 Ordered Blood Culture x2 Reflex Set [OM.PC] Stat Oth 02/10/19 02:10 Ordered Peripheral IV Insertion Adult [OM.PC] Stat Oth 02/10/19 00:05 Ordered Resuscitation Status Routine Resus Stat 02/10/19 05:22 Ordered Medication Orders Acetaminophen (Tylenol) 650 mg PO Q4H PRN PRN Reason: Pain (Mild 1-3)/fever Docusate Sodium (Colace) 100 mg PO BID PRN PRN Reason: Constipation Heparin Sodium (Porcine) (Heparin Sodium) 5,000 units SUBCUT Q8HR NICOLE Sodium Chloride (Normal Saline) 1,000 mls @ 100 mls/hr IV ASDIRECTED NICOLE Last Admin: 02/10/19 03:11 Dose: 100 mls/hr Ibuprofen (Motrin) 400 mg PO Q6H PRN PRN Reason: Pain (moderate 4-6) Morphine Sulfate (Morphine) 2 mg IVPUSH Q2H PRN PRN Reason: Pain (severe 7-10) Last Admin: 02/10/19 04:46 Dose: 2 mg Ondansetron HCl (Zofran Odt) 4 mg PO Q6H PRN PRN Reason: nausea, able to take PO Potassium Chloride (Klor-Con 10) 40 meq PO ONETIME ONE Stop: 02/10/19 05:27 Sodium Chloride (Saline Flush) 10 ml FLUSH ASDIRECTED PRN PRN Reason: Keep Vein Open Last Admin: 02/10/19 00:15 Dose: 10 ml Zolpidem Tartrate (Ambien) 5 mg PO BEDTIME PRN PRN Reason: Sleep Assessment/Plan Comment:: 44-year-old presented with urinary burning. Urinary tract infection with pyelonephritis on the right side Obtain urine culture Obtain blood culture CT showed IMPRESSION: Edematous swelling of the right kidney and right perinephric/periureteral fat stranding. Thickening and hyper-enhancement of the bilateral ureters. Diffuse thickening of the urinary bladder wall. No radiopaque urinary tract calculus is visualized. Findings most likely represent an ascending urinary tract infection. Empirical treatment with ceftriaxone Anemia Likely related to menstrual periods We will check iron, B12, folate Hypokalemia we will replace and recheck DVT prophylaxis with subcutaneous heparin
[2019-02-10] MEDS: Heparin Sodium 5,000 Units/ML Vial SUBCUT SCH ×3 (06:09→22:17)
[2019-02-10] MEDS: Ibuprofen 400 MG Tab PO PRN ×3 (10:33→23:01)
--- NOTE | 2019-02-10 11:08 | PCM.PN ---
- General Info Date of Service: 02/10/19 Admission Dx/Problem (Free Text): Admission Diagnosis/Problem Admission Diagnosis/Problem Pyelonephritis Subjective Update: Continues to have significant pain. She appeared uncomfortable. She denies any nausea vomiting, change in bowel habits. She reported burning with urination. She denied any other complaints. - Review of Systems General: Reports: No Symptoms Pulmonary: Reports: No Symptoms Cardiovascular: Reports: No Symptoms Gastrointestinal: Reports: No Symptoms Genitourinary: Reports: Dysuria, Flank Pain Musculoskeletal: Reports: No Symptoms Neurological: Reports: No Symptoms Psychiatric: Reports: No Symptoms - Patient Data Vitals - Most Recent: Last Vital Signs Temp 36.7 C 02/10/19 09:12 Pulse 109 H 02/10/19 09:12 Resp 16 02/10/19 09:12 BP 100/53 L 02/10/19 09:12 Pulse Ox 97 02/10/19 09:12 Weight - Most Recent: 75.16 kg I&O - Last 24 Hours: Intake & Output 02/09/19 02/10/19 02/10/19 22:59 06:59 14:59 Intake Total 1350 Output Total 500 Balance 850 Lab Results Last 24 Hours: Laboratory Results - last 24 hr 02/09/19 02/09/19 02/09/19 Range/Units 23:51 23:51 23:51 WBC (5.0-10.0) 10^3/uL RBC (4.2-5.4) 10^6/uL Hgb (12.0-16.0) g/dL Hct (37.0-47.0) % MCV (80-100) fL MCH (27.0-34.0) pg MCHC (33.0-35.0) g/dL Plt Count (150-450) 10^3/uL Neut % (Auto) (42.2-75.2) % Lymph % (Auto) (20.5-50.1) % [place] % (Auto) (2-8) % Eos % (Auto) (1.0-3.0) % Baso % (Auto) (0.0-1.0) % Sodium (135-145) mmol/L Potassium (3.6-5.0) mmol/L Chloride (101-111) mmol/L Carbon Dioxide (21.0-31.0) mmol/L Anion Gap BUN (7-18) mg/dL Creatinine (0.6-1.3) mg/dL Est Cr Clr Drug Dosing mL/min Estimated GFR (MDRD) BUN/Creatinine Ratio Glucose (74-105) mg/dL Lactic Acid (0.5-2.2) mmol/L Calcium (8.4-10.2) mg/dl Total Bilirubin (0.2-1.0) mg/dL AST (10-42) IU/L ALT (10-60) IU/L Alkaline Phosphatase (42-121) IU/L C-Reactive Protein (0.0-1.3) mg/dL Total Protein (6.7-8.2) g/dl Albumin (3.2-5.5) g/dl Globulin Albumin/Globulin Ratio Urine Color Red (YELLOW) Urine Appearance Turbid (CLEAR) Urine pH 6.0 (5.0-9.0) Ur Specific [place] 1.015 (1.005-1.030) Urine Protein >=300 H (NEGATIVE) Urine Glucose (UA) Negative (NEGATIVE) Urine Ketones Negative (NEGATIVE) Urine Occult Blood Large H (NEGATIVE) Urine Nitrite Positive H (NEGATIVE) Urine Bilirubin Small H (NEGATIVE) Urine Urobilinogen 1.0 (0.2-1.0) mg/dL Ur Leukocyte Esterase Large H (NEGATIVE) Urine RBC Packed H /HPF Urine WBC >100 H (0-5/HPF) /HPF Ur Epithelial Cells Moderate H (NOT SEEN) /HPF Amorphous Sediment Few (NOT SEEN) /HPF Urine Bacteria Moderate H (0-FEW/HPF) /HPF Urine Mucus Not seen (NOT SEEN) /LPF Urinalysis Comment See note Urine HCG, Qual Negative Urine Opiates Screen Negative (NEGATIVE) Ur Oxycodone Screen Negative (NEGATIVE) Urine Methadone Screen Negative (NEGATIVE) Ur Barbiturates Screen Negative (NEGATIVE) U Tricyclic Antidepress Positive H (NEGATIVE) Ur Phencyclidine Scrn Negative (NEGATIVE) Ur Amphetamine Screen Negative (NEGATIVE) U Methamphetamines Scrn Positive H (NEGATIVE) Urine MDMA Screen Negative (NEGATIVE) U Benzodiazepines Scrn Negative (NEGATIVE) Urine Cocaine Screen Negative (NEGATIVE) U Marijuana (THC) Screen Negative (NEGATIVE) Ethyl Alcohol mg/dL 02/10/19 02/10/19 02/10/19 Range/Units 00:15 00:15 00:15 WBC 11.1 H (5.0-10.0) 10^3/uL RBC 4.07 L (4.2-5.4) 10^6/uL Hgb 8.7 L D (12.0-16.0) g/dL Hct 29.1 L (37.0-47.0) % MCV 71.5 L D (80-100) fL MCH 21.4 L (27.0-34.0) pg MCHC 29.9 L (33.0-35.0) g/dL Plt Count 308 (150-450) 10^3/uL Neut % (Auto) 91.4 H (42.2-75.2) % Lymph % (Auto) 3.0 L (20.5-50.1) % [place] % (Auto) 5.4 (2-8) % Eos % (Auto) 0.1 L (1.0-3.0) % Baso % (Auto) 0.1 (0.0-1.0) % Sodium 131 L (135-145) mmol/L Potassium 3.3 L (3.6-5.0) mmol/L Chloride 99 L (101-111) mmol/L Carbon Dioxide 20.0 L (21.0-31.0) mmol/L Anion Gap 15.3 BUN 7 (7-18) mg/dL Creatinine 0.7 (0.6-1.3) mg/dL Est Cr Clr Drug Dosing 84.84 mL/min Estimated GFR (MDRD) > 60 BUN/Creatinine Ratio 10.00 Glucose 128 H (74-105) mg/dL Lactic Acid (0.5-2.2) mmol/L Calcium 8.4 (8.4-10.2) mg/dl Total Bilirubin 0.5 (0.2-1.0) mg/dL AST 41 (10-42) IU/L ALT 54 (10-60) IU/L Alkaline Phosphatase 134 H (42-121) IU/L C-Reactive Protein (0.0-1.3) mg/dL Total Protein 7.6 (6.7-8.2) g/dl Albumin 3.7 (3.2-5.5) g/dl Globulin 3.9 Albumin/Globulin Ratio 0.95 Urine Color (YELLOW) Urine Appearance (CLEAR) Urine pH (5.0-9.0) Ur Specific [place] (1.005-1.030) Urine Protein (NEGATIVE) Urine Glucose (UA) (NEGATIVE) Urine Ketones (NEGATIVE) Urine Occult Blood (NEGATIVE) Urine Nitrite (NEGATIVE) Urine Bilirubin (NEGATIVE) Urine Urobilinogen (0.2-1.0) mg/dL Ur Leukocyte Esterase (NEGATIVE) Urine RBC /HPF Urine WBC (0-5/HPF) /HPF Ur Epithelial Cells (NOT SEEN) /HPF Amorphous Sediment (NOT SEEN) /HPF Urine Bacteria (0-FEW/HPF) /HPF Urine Mucus (NOT SEEN) /LPF Urinalysis Comment Urine HCG, Qual Urine Opiates Screen (NEGATIVE) Ur Oxycodone Screen (NEGATIVE) Urine Methadone Screen (NEGATIVE) Ur Barbiturates Screen (NEGATIVE) U Tricyclic Antidepress (NEGATIVE) Ur Phencyclidine Scrn (NEGATIVE) Ur Amphetamine Screen (NEGATIVE) U Methamphetamines Scrn (NEGATIVE) Urine MDMA Screen (NEGATIVE) U Benzodiazepines Scrn (NEGATIVE) Urine Cocaine Screen (NEGATIVE) U Marijuana (THC) Screen (NEGATIVE) Ethyl Alcohol < 5 mg/dL 02/10/19 02/10/19 02/10/19 Range/Units 00:15 00:15 06:10 WBC 13.8 H (5.0-10.0) 10^3/uL RBC 3.61 L (4.2-5.4) 10^6/uL Hgb 7.7 L (12.0-16.0) g/dL Hct 26.0 L (37.0-47.0) % MCV 72.0 L (80-100) fL MCH 21.3 L (27.0-34.0) pg MCHC 29.6 L (33.0-35.0) g/dL Plt Count 270 (150-450) 10^3/uL Neut % (Auto) 93.0 H (42.2-75.2) % Lymph % (Auto) 1.7 L (20.5-50.1) % [place] % (Auto) 5.3 (2-8) % Eos % (Auto) 0.0 L (1.0-3.0) % Baso % (Auto) 0.0 (0.0-1.0) % Sodium (135-145) mmol/L Potassium (3.6-5.0) mmol/L Chloride (101-111) mmol/L Carbon Dioxide (21.0-31.0) mmol/L Anion Gap BUN (7-18) mg/dL Creatinine (0.6-1.3) mg/dL Est Cr Clr Drug Dosing mL/min Estimated GFR (MDRD) BUN/Creatinine Ratio Glucose (74-105) mg/dL Lactic Acid 1.7 (0.5-2.2) mmol/L Calcium (8.4-10.2) mg/dl Total Bilirubin (0.2-1.0) mg/dL AST (10-42) IU/L ALT (10-60) IU/L Alkaline Phosphatase (42-121) IU/L C-Reactive Protein > 20.0 H (0.0-1.3) mg/dL Total Protein (6.7-8.2) g/dl Albumin (3.2-5.5) g/dl Globulin Albumin/Globulin Ratio Urine Color (YELLOW) Urine Appearance (CLEAR) Urine pH (5.0-9.0) Ur Specific [place] (1.005-1.030) Urine Protein (NEGATIVE) Urine Glucose (UA) (NEGATIVE) Urine Ketones (NEGATIVE) Urine Occult Blood (NEGATIVE) Urine Nitrite (NEGATIVE) Urine Bilirubin (NEGATIVE) Urine Urobilinogen (0.2-1.0) mg/dL Ur Leukocyte Esterase (NEGATIVE) Urine RBC /HPF Urine WBC (0-5/HPF) /HPF Ur Epithelial Cells (NOT SEEN) /HPF Amorphous Sediment (NOT SEEN) /HPF Urine Bacteria (0-FEW/HPF) /HPF Urine Mucus (NOT SEEN) /LPF Urinalysis Comment Urine HCG, Qual Urine Opiates Screen (NEGATIVE) Ur Oxycodone Screen (NEGATIVE) Urine Methadone Screen (NEGATIVE) Ur Barbiturates Screen (NEGATIVE) U Tricyclic Antidepress (NEGATIVE) Ur Phencyclidine Scrn (NEGATIVE) Ur Amphetamine Screen (NEGATIVE) U Methamphetamines Scrn (NEGATIVE) Urine MDMA Screen (NEGATIVE) U Benzodiazepines Scrn (NEGATIVE) Urine Cocaine Screen (NEGATIVE) U Marijuana (THC) Screen (NEGATIVE) Ethyl Alcohol mg/dL Tej Results Last 24 Hours: Microbiology 02/10/19 00:18 Anaerobic Blood Culture - Final Blood - Venous - Lab Draw Med Orders - Current: Current Medications Acetaminophen (Tylenol) 650 mg PO Q4H PRN PRN Reason: Pain (Mild 1-3)/fever Docusate Sodium (Colace) 100 mg PO BID PRN PRN Reason: Constipation Heparin Sodium (Porcine) (Heparin Sodium) 5,000 units SUBCUT Q8HR [facility] Last Admin: 02/10/19 06:09 Dose: Not Given Sodium Chloride (Normal Saline) 1,000 mls @ 100 mls/hr IV ASDIRECTED NICOLE Last Admin: 02/10/19 03:11 Dose: 100 mls/hr Ceftriaxone Sodium 1 gm/ (Sodium Chloride) 50 mls @ 50 mls/hr IV Q24H NICOLE Ibuprofen (Motrin) 400 mg PO Q6H PRN PRN Reason: Pain (moderate 4-6) Last Admin: 02/10/19 10:33 Dose: 400 mg Morphine Sulfate (Morphine) 2 mg IVPUSH Q2H PRN PRN Reason: Pain (severe 7-10) Last Admin: 02/10/19 10:34 Dose: 2 mg Ondansetron HCl (Zofran Odt) 4 mg PO Q6H PRN PRN Reason: nausea, able to take PO Phenazopyridine HCl (Urinary Pain Relief) 95 mg PO TID PRN PRN Reason: Dysuria Sodium Chloride (Saline Flush) 10 ml FLUSH ASDIRECTED PRN PRN Reason: Keep Vein Open Last Admin: 02/10/19 00:15 Dose: 10 ml Zolpidem Tartrate (Ambien) 5 mg PO BEDTIME PRN PRN Reason: Sleep Discontinued Medications Hydromorphone HCl (Dilaudid) 1 mg IVPUSH ONETIME ONE Stop: 02/10/19 01:22 Last Admin: 02/10/19 01:28 Dose: 1 mg Sodium Chloride (Normal Saline) 1,000 mls @ 999 mls/hr IV .BOLUS ONE Stop: 02/10/19 01:06 Last Admin: 02/10/19 00:26 Dose: 999 mls/hr Ceftriaxone Sodium 1 gm/ (Sodium Chloride) 50 mls @ 50 mls/hr IV ONETIME ONE Stop: 02/10/19 01:58 Last Admin: 02/10/19 01:30 Dose: 50 mls/hr Iopamidol (Isovue-300 (61%)) 75 ml IVPUSH ONETIME ONE Stop: 02/10/19 00:57 Last Admin: 02/10/19 01:10 Dose: 75 ml Ketorolac Tromethamine (Toradol) 30 mg IVPUSH ONETIME ONE Stop: 02/10/19 00:31 Last Admin: 02/10/19 00:35 Dose: 30 mg Potassium Chloride (Klor-Con 10) 40 meq PO ONETIME ONE Stop: 02/10/19 05:27 Last Admin: 02/10/19 05:53 Dose: 40 meq - Exam General: Alert, Oriented Neck: Supple Lungs: Clear to Auscultation, Normal Respiratory Effort Cardiovascular: Tachycardia GI/Abdominal Exam: Normal Bowel Sounds, Soft, Non-Tender, Other (Bilateral CVA tenderness) Skin: Warm, Dry, Intact Neurological: No New Focal Deficit Psy/Mental Status: Alert, Normal Affect, Normal Mood - Problem List Review Problem List Initiated/Reviewed/Updated: Yes - My Orders Last 24 Hours: My Active Orders 02/10/19 10:01 Phenazopyridine [Urinary Pain Relief] 95 mg PO TID PRN - Plan Plan:: 44-year-old presented with urinary burning. Urinary tract infection with pyelonephritis on the right side Obtain urine culture Obtain blood culture CT showed IMPRESSION: Edematous swelling of the right kidney and right perinephric/periureteral fat stranding. Thickening and hyper-enhancement of the bilateral ureters. Diffuse thickening of the urinary bladder wall. No radiopaque urinary tract calculus is visualized. Findings most likely represent an ascending urinary tract infection. Empirical treatment with ceftriaxone Anemia Likely related to menstrual periods We will check iron, B12, folate Hypokalemia we will replace and recheck DVT prophylaxis with subcutaneous heparin
[2019-02-10] MEDS: Acetaminophen 325 MG Tab PO PRN (14:32)
[2019-02-10] MEDS: Phenazopyridine 95 MG Tab PO PRN (14:33)
[2019-02-10] MEDS: cefTRIAXone 1 GM in Sodium Chloride 0.9% 50 ML IV SCH (20:42)
[2019-02-11] MEDS: Sodium Chloride 0.9% 1,000 ML IV SCH ×3 (00:27→23:57)
[2019-02-11] MEDS: Phenazopyridine 95 MG Tab PO PRN ×4 (00:32→23:16)
[2019-02-11] MEDS: Zolpidem 5 MG Tab PO PRN ×2 (01:50→23:16)
[2019-02-11] MEDS: Heparin Sodium 5,000 Units/ML Vial SUBCUT SCH ×3 (06:04→22:23)
[2019-02-11 06:49] LABS: ANION GAP 13.2; CHLORIDE,CL 106 mmol/L (101-111); SODIUM,NA 136 mmol/L (135-145)
[2019-02-11] MEDS: Iron Polysaccharides Complex 150 MG Cap PO SCH (09:29)
[2019-02-11] MEDS: Ibuprofen 400 MG Tab PO PRN (12:39)
[2019-02-11] MEDS: Morphine 2 MG/ML Syringe IVPUSH PRN (13:37)
--- NOTE | 2019-02-11 15:17 | PCM.PN ---
- General Info Date of Service: 02/11/19 Admission Dx/Problem (Free Text): Admission Diagnosis/Problem Admission Diagnosis/Problem Pyelonephritis Subjective Update: Still has some mild dysuria with urination Afebrile overnight - Review of Systems General: Denies: Fever HEENT: Reports: No Symptoms Pulmonary: Reports: No Symptoms Cardiovascular: Reports: No Symptoms Gastrointestinal: Reports: No Symptoms Genitourinary: Reports: Dysuria Musculoskeletal: Reports: No Symptoms Skin: Reports: No Symptoms - Patient Data Vitals - Most Recent: Last Vital Signs Temp 36.9 C 02/11/19 12:00 Pulse 83 02/11/19 12:00 Resp 16 02/11/19 12:00 BP 92/57 L 02/11/19 12:00 Pulse Ox 100 02/11/19 12:00 Weight - Most Recent: 75.16 kg I&O - Last 24 Hours: Intake & Output 02/11/19 02/11/19 02/11/19 06:59 14:59 22:59 Intake Total 1147 420 Output Total 2500 900 Balance -1353 -480 Lab Results Last 24 Hours: Laboratory Results - last 24 hr 02/10/19 02/10/19 02/10/19 Range/Units 06:10 06:10 06:10 WBC (5.0-10.0) 10^3/uL RBC (4.2-5.4) 10^6/uL Hgb (12.0-16.0) g/dL Hct (37.0-47.0) % MCV (80-100) fL MCH (27.0-34.0) pg MCHC (33.0-35.0) g/dL Plt Count (150-450) 10^3/uL Neut % (Auto) (42.2-75.2) % Lymph % (Auto) (20.5-50.1) % [place] % (Auto) (2-8) % Eos % (Auto) (1.0-3.0) % Baso % (Auto) (0.0-1.0) % Sodium (135-145) mmol/L Potassium (3.6-5.0) mmol/L Chloride (101-111) mmol/L Carbon Dioxide (21.0-31.0) mmol/L Anion Gap BUN (7-18) mg/dL Creatinine (0.6-1.3) mg/dL Est Cr Clr Drug Dosing mL/min Estimated GFR (MDRD) Glucose (74-105) mg/dL Calcium (8.4-10.2) mg/dl Iron <10 L (35-145) ug/dL TIBC N/a H (261-478) ug/dL Unsaturated IBC 325 (155-355) ug/dL Transferrin % Sat N/a H (20.0-50.0) % Ferritin 35 (11-307) ng/mL Vitamin B12 210 (180-914) pg/mL Folate 11.1 ng/mL 02/11/19 02/11/19 Range/Units 06:02 06:02 WBC 14.0 H (5.0-10.0) 10^3/uL RBC 3.36 L (4.2-5.4) 10^6/uL Hgb 7.2 L (12.0-16.0) g/dL Hct 24.1 L (37.0-47.0) % MCV 71.7 L (80-100) fL MCH 21.4 L (27.0-34.0) pg MCHC 29.9 L (33.0-35.0) g/dL Plt Count 193 D (150-450) 10^3/uL Neut % (Auto) 88.0 H (42.2-75.2) % Lymph % (Auto) 3.6 L (20.5-50.1) % [place] % (Auto) 7.5 (2-8) % Eos % (Auto) 0.8 L (1.0-3.0) % Baso % (Auto) 0.1 (0.0-1.0) % Sodium 136 (135-145) mmol/L Potassium 3.2 L (3.6-5.0) mmol/L Chloride 106 (101-111) mmol/L Carbon Dioxide 20.0 L (21.0-31.0) mmol/L Anion Gap 13.2 BUN 8 (7-18) mg/dL Creatinine 0.6 (0.6-1.3) mg/dL Est Cr Clr Drug Dosing 98.98 mL/min Estimated GFR (MDRD) > 60 Glucose 129 H (74-105) mg/dL Calcium 8.0 L (8.4-10.2) mg/dl Iron (35-145) ug/dL TIBC (261-478) ug/dL Unsaturated IBC (155-355) ug/dL Transferrin % Sat (20.0-50.0) % Ferritin (11-307) ng/mL Vitamin B12 (180-914) pg/mL Folate ng/mL Tej Results Last 24 Hours: Microbiology 02/09/19 23:51 Urine Culture - Preliminary Urine, Voided 02/10/19 00:18 Aerobic Blood Culture - Preliminary Blood - Venous - Lab Draw NO GROWTH AFTER 1 DAY Anaerobic Blood Culture - Final 02/10/19 00:15 Aerobic Blood Culture - Preliminary Blood - Venous Anaerobic Blood Culture - Preliminary NO GROWTH AFTER 1 DAY Med Orders - Current: Current Medications Acetaminophen (Tylenol) 650 mg PO Q4H PRN PRN Reason: Pain (Mild 1-3)/fever Last Admin: 02/10/19 14:32 Dose: 650 mg Docusate Sodium (Colace) 100 mg PO BID PRN PRN Reason: Constipation Heparin Sodium (Porcine) (Heparin Sodium) 5,000 units SUBCUT Q8HR [facility] Last Admin: 02/11/19 13:32 Dose: 5,000 units Sodium Chloride (Normal Saline) 1,000 mls @ 100 mls/hr IV ASDIRECTED [facility] Last Admin: 02/11/19 12:40 Dose: 100 mls/hr Ceftriaxone Sodium 1 gm/ (Sodium Chloride) 50 mls @ 50 mls/hr IV Q24H [facility] Last Admin: 02/10/19 20:42 Dose: 50 mls/hr Ibuprofen (Motrin) 400 mg PO Q6H PRN PRN Reason: Pain (moderate 4-6) Last Admin: 02/11/19 12:39 Dose: 400 mg Morphine Sulfate (Morphine) 2 mg IVPUSH Q2H PRN PRN Reason: Pain (severe 7-10) Last Admin: 02/11/19 13:37 Dose: 2 mg Ondansetron HCl (Zofran Odt) 4 mg PO Q6H PRN PRN Reason: nausea, able to take PO Phenazopyridine HCl (Urinary Pain Relief) 95 mg PO TID PRN PRN Reason: Dysuria Last Admin: 02/11/19 12:40 Dose: 95 mg Polysaccharide Iron Complex (Ferrex 150) 150 mg PO DAILY [facility] Last Admin: 02/11/19 09:29 Dose: 150 mg Sodium Chloride (Saline Flush) 10 ml FLUSH ASDIRECTED PRN PRN Reason: Keep Vein Open Last Admin: 02/10/19 00:15 Dose: 10 ml Zolpidem Tartrate (Ambien) 5 mg PO BEDTIME PRN PRN Reason: Sleep Last Admin: 02/11/19 01:50 Dose: 5 mg Discontinued Medications Hydromorphone HCl (Dilaudid) 1 mg IVPUSH ONETIME ONE Stop: 02/10/19 01:22 Last Admin: 02/10/19 01:28 Dose: 1 mg Sodium Chloride (Normal Saline) 1,000 mls @ 999 mls/hr IV .BOLUS ONE Stop: 02/10/19 01:06 Last Admin: 02/10/19 00:26 Dose: 999 mls/hr Ceftriaxone Sodium 1 gm/ (Sodium Chloride) 50 mls @ 50 mls/hr IV ONETIME ONE Stop: 02/10/19 01:58 Last Admin: 02/10/19 01:30 Dose: 50 mls/hr Iopamidol (Isovue-300 (61%)) 75 ml IVPUSH ONETIME ONE Stop: 02/10/19 00:57 Last Admin: 02/10/19 01:10 Dose: 75 ml Ketorolac Tromethamine (Toradol) 30 mg IVPUSH ONETIME ONE Stop: 02/10/19 00:31 Last Admin: 02/10/19 00:35 Dose: 30 mg Potassium Chloride (Klor-Con 10) 40 meq PO ONETIME ONE Stop: 02/10/19 05:27 Last Admin: 02/10/19 05:53 Dose: 40 meq - Exam General: Alert, Oriented HEENT: Pupils Equal Neck: Supple Lungs: Clear to Auscultation Cardiovascular: Regular Rate, Regular Rhythm GI/Abdominal Exam: Normal Bowel Sounds, Soft Extremities: Normal Inspection, Normal Range of Motion - Problem List Review Problem List Initiated/Reviewed/Updated: Yes - My Orders Last 24 Hours: My Active Orders 02/12/19 05:11 BASIC METABOLIC PANEL,BMP [CHEM] AM CBC W/O DIFF,HEMOGRAM [HEME] AM 02/13/19 05:11 BASIC METABOLIC PANEL,BMP [CHEM] AM CBC W/O DIFF,HEMOGRAM [HEME] AM 02/14/19 05:11 BASIC METABOLIC PANEL,BMP [CHEM] AM CBC W/O DIFF,HEMOGRAM [HEME] AM - Plan Plan:: 44-year-old presented with urinary burning. Urinary tract infection with pyelonephritis on the right side Continue IV ceftriaxone f/u urine cx for sensitivity Severe Microcytic anemia Possibly related to heavy periods. Will recommend follow up with Ob-Digester Hand No melena stools Hb trending down slightly Low ferritin Continue iron replacement Trend CBC daily Hypokalemia we will replace K orally DVT prophylaxis with subcutaneous heparin
[2019-02-11] MEDS ORDERED: Potassium Chloride 10 MEQ Tab.ER PO ONE (15:30)
[2019-02-11] MEDS: Docusate Sodium 100 MG Cap PO PRN (16:26)
[2019-02-11] MEDS: traMADol 50 MG Tab PO PRN ×2 (17:09→23:16)
[2019-02-11] MEDS: cefTRIAXone 1 GM in Sodium Chloride 0.9% 50 ML IV SCH (20:32)
[2019-02-12] MEDS: Heparin Sodium 5,000 Units/ML Vial SUBCUT SCH ×3 (06:02→21:28)
[2019-02-12 07:56] LABS: ANION GAP 13.6; CHLORIDE,CL 103 mmol/L (101-111); SODIUM,NA 132 mmol/L (135-145)
[2019-02-12] MEDS: traMADol 50 MG Tab PO PRN ×3 (08:33→21:28)
[2019-02-12] MEDS: Iron Polysaccharides Complex 150 MG Cap PO SCH (08:34)
[2019-02-12] MEDS: Pantoprazole 40 MG Vial IVPUSH SCH (12:33)
[2019-02-12] MEDS: Ciprofloxacin in D5W 400 MG in Premix Bag 1 BAG IV SCH ×4 (12:53→21:28)
[2019-02-12] MEDS: Acetaminophen 325 MG Tab PO PRN ×2 (13:16→19:58)
[2019-02-12] MEDS: Phenazopyridine 95 MG Tab PO PRN (13:17)
[2019-02-12] MEDS: Docusate Sodium 100 MG Cap PO PRN ×2 (13:17→19:58)
--- NOTE | 2019-02-12 13:24 | PCM.PN ---
- General Info Date of Service: 02/12/19 Admission Dx/Problem (Free Text): Admission Diagnosis/Problem Admission Diagnosis/Problem Pyelonephritis Subjective Update: I saw and examined the patient at the bedside Afebrile overnight Complains of bitemporal headaches this morning Also complains of abdominal pain, epigastric in location, radiating to the flanks, 4/10, worse with movement hemoglobin dropped to 6.7 this morning Menorrhagia has improved and menstrual period stopped last night - Review of Systems General: Denies: Fever HEENT: Reports: No Symptoms Pulmonary: Reports: No Symptoms Cardiovascular: Reports: No Symptoms Gastrointestinal: Reports: Abdominal Pain Genitourinary: Reports: Dysuria Musculoskeletal: Reports: No Symptoms Skin: Reports: No Symptoms Neurological: Reports: Dizziness - Patient Data Vitals - Most Recent: Last Vital Signs Temp 37.7 C 02/12/19 12:40 Pulse 93 02/12/19 12:40 Resp 24 H 02/12/19 12:40 BP 122/67 02/12/19 12:40 Pulse Ox 93 L 02/12/19 12:40 Weight - Most Recent: 75.16 kg I&O - Last 24 Hours: Intake & Output 02/11/19 02/12/19 02/12/19 22:59 06:59 14:59 Intake Total 171 1050 0 Output Total 700 900 Balance -529 1050 -900 Lab Results Last 24 Hours: Laboratory Results - last 24 hr 02/12/19 02/12/19 02/12/19 Range/Units 06:15 06:35 06:35 WBC 11.1 H (5.0-10.0) 10^3/uL RBC 3.19 L (4.2-5.4) 10^6/uL Hgb 6.7 L* (12.0-16.0) g/dL Hct 22.6 L (37.0-47.0) % MCV 70.8 L (80-100) fL MCH 21.0 L (27.0-34.0) pg MCHC 29.6 L (33.0-35.0) g/dL Plt Count 211 (150-450) 10^3/uL Neut % (Auto) 84.4 H (42.2-75.2) % Lymph % (Auto) 7.1 L (20.5-50.1) % [place] % (Auto) 7.6 (2-8) % Eos % (Auto) 0.8 L (1.0-3.0) % Baso % (Auto) 0.1 (0.0-1.0) % Sodium 132 L (135-145) mmol/L Potassium 3.6 (3.6-5.0) mmol/L Chloride 103 (101-111) mmol/L Carbon Dioxide 19.0 L (21.0-31.0) mmol/L Anion Gap 13.6 BUN 6 L (7-18) mg/dL Creatinine 0.6 (0.6-1.3) mg/dL Est Cr Clr Drug Dosing 98.98 mL/min Estimated GFR (MDRD) > 60 Glucose 103 (74-105) mg/dL Calcium 7.5 L (8.4-10.2) mg/dl Blood Type O POSITIVE Gel Antibody Screen Negative Crossmatch See Detail Tej Results Last 24 Hours: Microbiology 02/12/19 12:30 Stool Occult Blood (TEJ) - Final Stool / Feces NEGATIVE OCCULT BLOOD REFERENCE RANGE: NEGATIVE 02/09/19 23:51 Urine Culture - Final Urine, Voided Escherichia Coli 02/10/19 00:18 Aerobic Blood Culture - Preliminary Blood - Venous - Lab Draw NO GROWTH AFTER 2 DAYS Anaerobic Blood Culture - Final 02/10/19 00:15 Aerobic Blood Culture - Final Blood - Venous Escherichia Coli Anaerobic Blood Culture - Preliminary NO GROWTH AFTER 2 DAYS Med Orders - Current: Current Medications Acetaminophen (Tylenol) 650 mg PO Q4H PRN PRN Reason: Pain (Mild 1-3)/fever Last Admin: 02/12/19 13:16 Dose: 650 mg Docusate Sodium (Colace) 100 mg PO BID PRN PRN Reason: Constipation Last Admin: 02/12/19 13:17 Dose: 100 mg Heparin Sodium (Porcine) (Heparin Sodium) 5,000 units SUBCUT Q8HR [facility] Last Admin: 02/12/19 06:02 Dose: 5,000 units Sodium Chloride (Normal Saline) 1,000 mls @ 100 mls/hr IV ASDIRECTED [facility] Last Admin: 02/11/19 23:57 Dose: 100 mls/hr Ciprofloxacin/Dextrose 400 mg/ (Premix) 200 mls @ 200 mls/hr IV Q12HR [facility] Last Admin: 02/12/19 12:53 Dose: 200 mls/hr Morphine Sulfate (Morphine) 2 mg IVPUSH Q2H PRN PRN Reason: Pain (severe 7-10) Last Admin: 02/11/19 13:37 Dose: 2 mg Ondansetron HCl (Zofran Odt) 4 mg PO Q6H PRN PRN Reason: nausea, able to take PO Pantoprazole Sodium (Protonix Iv) 40 mg IVPUSH Q12H [facility] Last Admin: 02/12/19 12:33 Dose: 40 mg Phenazopyridine HCl (Urinary Pain Relief) 95 mg PO TID PRN PRN Reason: Dysuria Last Admin: 02/12/19 13:17 Dose: 95 mg Polysaccharide Iron Complex (Ferrex 150) 150 mg PO DAILY [facility] Last Admin: 02/12/19 08:34 Dose: 150 mg Sodium Chloride (Saline Flush) 10 ml FLUSH ASDIRECTED PRN PRN Reason: Keep Vein Open Last Admin: 02/10/19 00:15 Dose: 10 ml Tramadol HCl (Ultram) 50 mg PO Q6H PRN PRN Reason: Pain (moderate 4-6) Last Admin: 02/12/19 08:33 Dose: 50 mg Zolpidem Tartrate (Ambien) 5 mg PO BEDTIME PRN PRN Reason: Sleep Last Admin: 02/11/19 23:16 Dose: 5 mg Discontinued Medications Hydromorphone HCl (Dilaudid) 1 mg IVPUSH ONETIME ONE Stop: 02/10/19 01:22 Last Admin: 02/10/19 01:28 Dose: 1 mg Sodium Chloride (Normal Saline) 1,000 mls @ 999 mls/hr IV .BOLUS ONE Stop: 02/10/19 01:06 Last Admin: 02/10/19 00:26 Dose: 999 mls/hr Ceftriaxone Sodium 1 gm/ (Sodium Chloride) 50 mls @ 50 mls/hr IV ONETIME ONE Stop: 02/10/19 01:58 Last Admin: 02/10/19 01:30 Dose: 50 mls/hr Ceftriaxone Sodium 1 gm/ (Sodium Chloride) 50 mls @ 50 mls/hr IV Q24H [facility] Last Admin: 02/11/19 20:32 Dose: 50 mls/hr Ibuprofen (Motrin) 400 mg PO Q6H PRN PRN Reason: Pain (moderate 4-6) Last Admin: 02/11/19 12:39 Dose: 400 mg Iopamidol (Isovue-300 (61%)) 75 ml IVPUSH ONETIME ONE Stop: 02/10/19 00:57 Last Admin: 02/10/19 01:10 Dose: 75 ml Ketorolac Tromethamine (Toradol) 30 mg IVPUSH ONETIME ONE Stop: 02/10/19 00:31 Last Admin: 02/10/19 00:35 Dose: 30 mg Potassium Chloride (Klor-Con 10) 40 meq PO ONETIME ONE Stop: 02/10/19 05:27 Last Admin: 02/10/19 05:53 Dose: 40 meq Potassium Chloride (Klor-Con 10) 40 meq PO ONETIME ONE Stop: 02/11/19 15:31 Last Admin: 02/11/19 16:26 Dose: 40 meq - Exam General: Alert, Oriented HEENT: Pupils Equal Neck: Supple Lungs: Clear to Auscultation Cardiovascular: Regular Rate, Regular Rhythm GI/Abdominal Exam: Normal Bowel Sounds, Tender Extremities: Normal Inspection, Normal Range of Motion. No: Pedal Edema - Problem List Review Problem List Initiated/Reviewed/Updated: Yes - My Orders Last 24 Hours: My Active Orders 02/11/19 16:33 traMADol [Ultram] 50 mg PO Q6H PRN 02/12/19 06:15 RED BLOOD CELLS LP [BBK] Routine TYPE AND SCREEN [BBK] Routine 02/12/19 08:27 Transfuse Red Blood Cells [COMM] Routine 02/12/19 12:07 CULTURE BLOOD [BC] Stat Blood Culture x2 Reflex Set [OM.PC] Stat 02/12/19 12:08 Echo Comp wo Cont [US] Routine 02/12/19 12:30 Ciprofloxacin in D5W [Cipro in D5W 400 MG/200 ML] 400 mg Premix Bag 1 bag IV Q12HR Pantoprazole [ProTONIX IV] 40 mg IVPUSH Q12H 02/12/19 12:52 CULTURE BLOOD [BC] Stat 02/13/19 05:11 BASIC METABOLIC PANEL,BMP [CHEM] AM CBC W/O DIFF,HEMOGRAM [HEME] AM 02/14/19 05:11 BASIC METABOLIC PANEL,BMP [CHEM] AM CBC W/O DIFF,HEMOGRAM [HEME] AM - Plan Plan:: 44-year-old presented with urinary burning. Urinary tract infection with pyelonephritis on the right side blood culture and urine culture positive for Escherichia coli; however different sensitivities with Urine culture pansensitive Escherichia coli, and blood culture Escherichia coli is resistant to some antibiotics Switch IV antibiotics to IV ciprofloxacin every 12 hours based on blood culture sensitivities Repeat blood culture 2 2-D echo to rule out source of emboli Monitor vital signs will need 14 days of IV antibiotics from last negative blood cultures. Severe Microcytic anemia Likely related to heavy periods. Will recommend follow up with [facility] No melena stools; Hemoccult negative Hb trending down to 6.7 transfused 2 units of packed red blood cells Low ferritin Continue iron replacement Trend CBC daily abdominal pain, likely dyspepsia start IV Protonix DVT prophylaxis with subcutaneous heparin
[2019-02-12] MEDS: Sodium Chloride 0.9% 1,000 ML IV SCH (19:53)
[2019-02-13] MEDS: Pantoprazole 40 MG Vial IVPUSH SCH ×2 (00:36→12:59)
[2019-02-13] MEDS: Zolpidem 5 MG Tab PO PRN (00:37)
[2019-02-13] MEDS: Heparin Sodium 5,000 Units/ML Vial SUBCUT SCH ×3 (06:06→21:38)
[2019-02-13] MEDS: Sodium Chloride 0.9% 1,000 ML IV SCH ×2 (06:06→17:25)
[2019-02-13 07:18] LABS: ANION GAP 13.5; CHLORIDE,CL 103 mmol/L (101-111); SODIUM,NA 134 mmol/L (135-145)
[2019-02-13] MEDS: Ciprofloxacin in D5W 400 MG in Premix Bag 1 BAG IV SCH ×4 (09:01→21:44)
[2019-02-13] MEDS: Iron Polysaccharides Complex 150 MG Cap PO SCH (09:01)
--- NOTE | 2019-02-13 12:19 | PCM.PN ---
- General Info Date of Service: 02/13/19 Admission Dx/Problem (Free Text): Admission Diagnosis/Problem Admission Diagnosis/Problem Pyelonephritis Subjective Update: I saw and examined the patient at the bedside Afebrile overnight Feels much better this morning No new symptoms - Review of Systems General: Denies: Fever HEENT: Reports: No Symptoms Pulmonary: Reports: No Symptoms Cardiovascular: Reports: No Symptoms Gastrointestinal: Reports: No Symptoms Genitourinary: Reports: No Symptoms Musculoskeletal: Reports: No Symptoms Skin: Reports: No Symptoms - Patient Data Vitals - Most Recent: Last Vital Signs Temp 36.9 C 02/13/19 12:15 Pulse 86 02/13/19 12:15 Resp 20 02/13/19 12:15 BP 113/71 02/13/19 12:15 Pulse Ox 95 02/13/19 12:15 Weight - Most Recent: 75.16 kg I&O - Last 24 Hours: Intake & Output 02/12/19 02/13/19 02/13/19 22:59 06:59 14:59 Intake Total 1600 1078 Output Total 900 1500 Balance 700 -422 Lab Results Last 24 Hours: Laboratory Results - last 24 hr 02/12/19 02/13/19 02/13/19 Range/Units 06:15 06:00 06:00 WBC 8.0 (5.0-10.0) 10^3/uL RBC 3.97 L (4.2-5.4) 10^6/uL Hgb 9.1 L D (12.0-16.0) g/dL Hct 28.9 L (37.0-47.0) % MCV 72.8 L (80-100) fL MCH 22.9 L (27.0-34.0) pg MCHC 31.5 L (33.0-35.0) g/dL Plt Count 242 (150-450) 10^3/uL Sodium 134 L (135-145) mmol/L Potassium 3.5 L (3.6-5.0) mmol/L Chloride 103 (101-111) mmol/L Carbon Dioxide 21.0 (21.0-31.0) mmol/L Anion Gap 13.5 BUN 5 L (7-18) mg/dL Creatinine 0.5 L (0.6-1.3) mg/dL Est Cr Clr Drug Dosing 118.77 mL/min Estimated GFR (MDRD) > 60 Glucose 91 (74-105) mg/dL Calcium 7.6 L (8.4-10.2) mg/dl Blood Type O POSITIVE Gel Antibody Screen Negative Crossmatch See Detail Tej Results Last 24 Hours: Microbiology 02/10/19 00:18 Aerobic Blood Culture - Preliminary Blood - Venous - Lab Draw NO GROWTH AFTER 3 DAYS Anaerobic Blood Culture - Final 02/10/19 00:15 Aerobic Blood Culture - Final Blood - Venous Escherichia Coli Anaerobic Blood Culture - Preliminary NO GROWTH AFTER 3 DAYS 02/12/19 12:30 Stool Occult Blood (TEJ) - Final Stool / Feces NEGATIVE OCCULT BLOOD REFERENCE RANGE: NEGATIVE 02/09/19 23:51 Urine Culture - Final Urine, Voided Escherichia Coli Med Orders - Current: Current Medications Acetaminophen (Tylenol) 650 mg PO Q4H PRN PRN Reason: Pain (Mild 1-3)/fever Last Admin: 02/12/19 19:58 Dose: 650 mg Docusate Sodium (Colace) 100 mg PO BID PRN PRN Reason: Constipation Last Admin: 02/12/19 19:58 Dose: 100 mg Guaifenesin/Codeine Phosphate (Robitussin Ac) 5 ml PO Q6H PRN PRN Reason: Cough Heparin Sodium (Porcine) (Heparin Sodium) 5,000 units SUBCUT Q8HR [facility] Last Admin: 02/13/19 06:06 Dose: 5,000 units Sodium Chloride (Normal Saline) 1,000 mls @ 100 mls/hr IV ASDIRECTED [facility] Last Admin: 02/13/19 06:06 Dose: 100 mls/hr Ciprofloxacin/Dextrose 400 mg/ (Premix) 200 mls @ 200 mls/hr IV Q12HR [facility] Last Admin: 02/13/19 09:01 Dose: 200 mls/hr Morphine Sulfate (Morphine) 2 mg IVPUSH Q2H PRN PRN Reason: Pain (severe 7-10) Last Admin: 02/11/19 13:37 Dose: 2 mg Ondansetron HCl (Zofran Odt) 4 mg PO Q6H PRN PRN Reason: nausea, able to take PO Pantoprazole Sodium (Protonix Iv) 40 mg IVPUSH Q12H [facility] Last Admin: 02/13/19 00:36 Dose: 40 mg Phenazopyridine HCl (Urinary Pain Relief) 95 mg PO TID PRN PRN Reason: Dysuria Last Admin: 02/12/19 13:17 Dose: 95 mg Polysaccharide Iron Complex (Ferrex 150) 150 mg PO DAILY [facility] Last Admin: 02/13/19 09:01 Dose: 150 mg Sodium Chloride (Saline Flush) 10 ml FLUSH ASDIRECTED PRN PRN Reason: Keep Vein Open Last Admin: 02/10/19 00:15 Dose: 10 ml Tramadol HCl (Ultram) 50 mg PO Q6H PRN PRN Reason: Pain (moderate 4-6) Last Admin: 02/12/19 21:28 Dose: 50 mg Zolpidem Tartrate (Ambien) 5 mg PO BEDTIME PRN PRN Reason: Sleep Last Admin: 02/13/19 00:37 Dose: 5 mg Discontinued Medications Hydromorphone HCl (Dilaudid) 1 mg IVPUSH ONETIME ONE Stop: 02/10/19 01:22 Last Admin: 02/10/19 01:28 Dose: 1 mg Sodium Chloride (Normal Saline) 1,000 mls @ 999 mls/hr IV .BOLUS ONE Stop: 02/10/19 01:06 Last Admin: 02/10/19 00:26 Dose: 999 mls/hr Ceftriaxone Sodium 1 gm/ (Sodium Chloride) 50 mls @ 50 mls/hr IV ONETIME ONE Stop: 02/10/19 01:58 Last Admin: 02/10/19 01:30 Dose: 50 mls/hr Ceftriaxone Sodium 1 gm/ (Sodium Chloride) 50 mls @ 50 mls/hr IV Q24H [facility] Last Admin: 02/11/19 20:32 Dose: 50 mls/hr Ibuprofen (Motrin) 400 mg PO Q6H PRN PRN Reason: Pain (moderate 4-6) Last Admin: 02/11/19 12:39 Dose: 400 mg Iopamidol (Isovue-300 (61%)) 75 ml IVPUSH ONETIME ONE Stop: 02/10/19 00:57 Last Admin: 02/10/19 01:10 Dose: 75 ml Ketorolac Tromethamine (Toradol) 30 mg IVPUSH ONETIME ONE Stop: 02/10/19 00:31 Last Admin: 02/10/19 00:35 Dose: 30 mg Potassium Chloride (Klor-Con 10) 40 meq PO ONETIME ONE Stop: 02/10/19 05:27 Last Admin: 02/10/19 05:53 Dose: 40 meq Potassium Chloride (Klor-Con 10) 40 meq PO ONETIME ONE Stop: 02/11/19 15:31 Last Admin: 02/11/19 16:26 Dose: 40 meq - Exam General: Alert, Oriented HEENT: Pupils Equal, Pupils Reactive Neck: Supple Lungs: Clear to Auscultation, Normal Respiratory Effort Cardiovascular: Regular Rate, Regular Rhythm GI/Abdominal Exam: Normal Bowel Sounds, Soft, Non-Tender - Problem List Review Problem List Initiated/Reviewed/Updated: Yes - My Orders Last 24 Hours: My Active Orders 02/12/19 12:07 Blood Culture x2 Reflex Set [OM.PC] Stat 02/12/19 12:08 Echo Comp wo Cont [US] Routine 02/12/19 12:30 Ciprofloxacin in D5W [Cipro in D5W 400 MG/200 ML] 400 mg Premix Bag 1 bag IV Q12HR Pantoprazole [ProTONIX IV] 40 mg IVPUSH Q12H 02/12/19 12:52 CULTURE BLOOD [BC] Stat 02/12/19 16:06 CULTURE BLOOD [BC] Stat 02/13/19 11:34 Codeine/guaiFENesin [Robitussin AC] 5 ml PO Q6H PRN 02/14/19 05:11 BASIC METABOLIC PANEL,BMP [CHEM] AM CBC W/O DIFF,HEMOGRAM [HEME] AM - Plan Plan:: 44-year-old presented with urinary burning. Urinary tract infection with pyelonephritis on the right side blood culture and urine culture positive for Escherichia coli; however different sensitivities with Urine culture pansensitive Escherichia coli, and blood culture Escherichia coli is resistant to some antibiotics Switch IV antibiotics to IV ciprofloxacin every 12 hours based on blood culture sensitivities Repeat blood culture 2 2-D echo to rule out source of emboli Monitor vital signs will need 14 days of IV antibiotics from last negative blood cultures. Severe Microcytic anemia s/p 2 units of pRBCs with Hb rising appropriately dizziness has resolved will need o/p gyne follow up for menorrhagia continue iron supplementation hemoccult negative, low suspicion for GI bleed. abdominal pain, likely dyspepsia continue Protonix DVT prophylaxis with subcutaneous heparin
[2019-02-13] MEDS: Codeine/guaiFENesin 100-10 MG/5 ML Syrup 5 ML Cup PO PRN ×2 (12:58→19:32)
[2019-02-13] MEDS: traMADol 50 MG Tab PO PRN ×2 (13:33→19:32)
[2019-02-13] MEDS: Morphine 2 MG/ML Syringe IVPUSH PRN (21:32)
[2019-02-13] MEDS: Sodium Chloride 0.9% 10 ML Syringe FLUSH PRN (21:33)
[2019-02-14] MEDS: Pantoprazole 40 MG Vial IVPUSH SCH (01:53)
[2019-02-14] MEDS: Sodium Chloride 0.9% 1,000 ML IV SCH (06:04)
[2019-02-14] MEDS: Heparin Sodium 5,000 Units/ML Vial SUBCUT SCH ×3 (06:05→21:39)
[2019-02-14 06:57] LABS: ANION GAP 15.3; CHLORIDE,CL 100 mmol/L (101-111); SODIUM,NA 136 mmol/L (135-145)
[2019-02-14] MEDS: traMADol 50 MG Tab PO PRN ×2 (07:31→21:13)
[2019-02-14] MEDS: Iron Polysaccharides Complex 150 MG Cap PO SCH (08:17)
[2019-02-14] MEDS: Codeine/guaiFENesin 100-10 MG/5 ML Syrup 5 ML Cup PO PRN ×2 (08:18→18:17)
[2019-02-14] MEDS ORDERED: Potassium Chloride 10 MEQ Tab.ER PO ONE (09:46)
[2019-02-14] MEDS: Ciprofloxacin in D5W 400 MG in Premix Bag 1 BAG IV SCH ×4 (10:28→21:01)
[2019-02-14] MEDS: Sodium Chloride 0.9% 10 ML Syringe FLUSH PRN ×2 (11:37→21:05)
--- NOTE | 2019-02-14 12:01 | PCM.PN ---
- General Info Date of Service: 02/14/19 Admission Dx/Problem (Free Text): Admission Diagnosis/Problem Admission Diagnosis/Problem Pyelonephritis Subjective Update: I saw and examined the patient at the bedside Afebrile overnight Feels much better this morning No new symptoms Abdominal pain is resolved - Review of Systems General: Reports: No Symptoms HEENT: Reports: No Symptoms Pulmonary: Reports: No Symptoms Cardiovascular: Reports: No Symptoms Gastrointestinal: Reports: No Symptoms Genitourinary: Reports: No Symptoms Musculoskeletal: Reports: No Symptoms Skin: Reports: No Symptoms Neurological: Reports: No Symptoms - Patient Data Vitals - Most Recent: Last Vital Signs Temp 36.5 C 02/14/19 11:17 Pulse 75 02/14/19 11:17 Resp 16 02/14/19 11:17 BP 124/78 02/14/19 11:17 Pulse Ox 98 02/14/19 11:17 Weight - Most Recent: 75.16 kg I&O - Last 24 Hours: Intake & Output 02/13/19 02/14/19 02/14/19 22:59 06:59 14:59 Intake Total 1080 1979 1200 Output Total 1000 Balance 80 1980 1200 Lab Results Last 24 Hours: Laboratory Results - last 24 hr 02/14/19 02/14/19 Range/Units 06:00 06:00 WBC 5.4 (5.0-10.0) 10^3/uL RBC 3.88 L (4.2-5.4) 10^6/uL Hgb 9.0 L (12.0-16.0) g/dL Hct 28.5 L (37.0-47.0) % MCV 73.5 L (80-100) fL MCH 23.2 L (27.0-34.0) pg MCHC 31.6 L (33.0-35.0) g/dL Plt Count 297 (150-450) 10^3/uL Sodium 136 (135-145) mmol/L Potassium 3.3 L (3.6-5.0) mmol/L Chloride 100 L (101-111) mmol/L Carbon Dioxide 24.0 (21.0-31.0) mmol/L Anion Gap 15.3 BUN 3 L (7-18) mg/dL Creatinine 0.6 (0.6-1.3) mg/dL Est Cr Clr Drug Dosing 98.98 mL/min Estimated GFR (MDRD) > 60 Glucose 100 (74-105) mg/dL Calcium 8.2 L (8.4-10.2) mg/dl Tej Results Last 24 Hours: Microbiology 02/10/19 00:18 Aerobic Blood Culture - Preliminary Blood - Venous - Lab Draw NO GROWTH AFTER 4 DAYS Anaerobic Blood Culture - Final 02/10/19 00:15 Aerobic Blood Culture - Final Blood - Venous Escherichia Coli Anaerobic Blood Culture - Preliminary NO GROWTH AFTER 4 DAYS 02/12/19 16:06 Aerobic Blood Culture - Preliminary Blood - Venous - Lab Draw NO GROWTH AFTER 1 DAY Anaerobic Blood Culture - Preliminary NO GROWTH AFTER 1 DAY 02/12/19 12:52 Aerobic Blood Culture - Preliminary Blood - Venous NO GROWTH AFTER 1 DAY Anaerobic Blood Culture - Preliminary NO GROWTH AFTER 1 DAY Med Orders - Current: Current Medications Acetaminophen (Tylenol) 650 mg PO Q4H PRN PRN Reason: Pain (Mild 1-3)/fever Last Admin: 02/12/19 19:58 Dose: 650 mg Docusate Sodium (Colace) 100 mg PO BID PRN PRN Reason: Constipation Last Admin: 02/12/19 19:58 Dose: 100 mg Guaifenesin/Codeine Phosphate (Robitussin Ac) 5 ml PO Q6H PRN PRN Reason: Cough Last Admin: 02/14/19 08:18 Dose: 5 ml Heparin Sodium (Porcine) (Heparin Sodium) 5,000 units SUBCUT Q8HR [facility] Last Admin: 02/14/19 06:05 Dose: 5,000 units Ciprofloxacin/Dextrose 400 mg/ (Premix) 200 mls @ 200 mls/hr IV Q12HR [facility] Last Admin: 02/14/19 10:28 Dose: 200 mls/hr Morphine Sulfate (Morphine) 2 mg IVPUSH Q2H PRN PRN Reason: Pain (severe 7-10) Last Admin: 02/13/19 21:32 Dose: 2 mg Ondansetron HCl (Zofran Odt) 4 mg PO Q6H PRN PRN Reason: nausea, able to take PO Pantoprazole Sodium (Protonix Iv) 40 mg IVPUSH Q12H [facility] Last Admin: 02/14/19 01:53 Dose: 40 mg Phenazopyridine HCl (Urinary Pain Relief) 95 mg PO TID PRN PRN Reason: Dysuria Last Admin: 02/12/19 13:17 Dose: 95 mg Polysaccharide Iron Complex (Ferrex 150) 150 mg PO DAILY [facility] Last Admin: 02/14/19 08:17 Dose: 150 mg Sodium Chloride (Saline Flush) 10 ml FLUSH ASDIRECTED PRN PRN Reason: Keep Vein Open Last Admin: 02/14/19 11:37 Dose: 10 ml Tramadol HCl (Ultram) 50 mg PO Q6H PRN PRN Reason: Pain (moderate 4-6) Last Admin: 02/14/19 07:31 Dose: 50 mg Zolpidem Tartrate (Ambien) 5 mg PO BEDTIME PRN PRN Reason: Sleep Last Admin: 02/13/19 00:37 Dose: 5 mg Discontinued Medications Hydromorphone HCl (Dilaudid) 1 mg IVPUSH ONETIME ONE Stop: 02/10/19 01:22 Last Admin: 02/10/19 01:28 Dose: 1 mg Sodium Chloride (Normal Saline) 1,000 mls @ 999 mls/hr IV .BOLUS ONE Stop: 02/10/19 01:06 Last Admin: 02/10/19 00:26 Dose: 999 mls/hr Ceftriaxone Sodium 1 gm/ (Sodium Chloride) 50 mls @ 50 mls/hr IV ONETIME ONE Stop: 02/10/19 01:58 Last Admin: 02/10/19 01:30 Dose: 50 mls/hr Sodium Chloride (Normal Saline) 1,000 mls @ 100 mls/hr IV ASDIRECTED [facility] Last Admin: 02/14/19 06:04 Dose: 100 mls/hr Ceftriaxone Sodium 1 gm/ (Sodium Chloride) 50 mls @ 50 mls/hr IV Q24H [facility] Last Admin: 02/11/19 20:32 Dose: 50 mls/hr Ibuprofen (Motrin) 400 mg PO Q6H PRN PRN Reason: Pain (moderate 4-6) Last Admin: 02/11/19 12:39 Dose: 400 mg Iopamidol (Isovue-300 (61%)) 75 ml IVPUSH ONETIME ONE Stop: 02/10/19 00:57 Last Admin: 02/10/19 01:10 Dose: 75 ml Ketorolac Tromethamine (Toradol) 30 mg IVPUSH ONETIME ONE Stop: 02/10/19 00:31 Last Admin: 02/10/19 00:35 Dose: 30 mg Potassium Chloride (Klor-Con 10) 40 meq PO ONETIME ONE Stop: 02/10/19 05:27 Last Admin: 02/10/19 05:53 Dose: 40 meq Potassium Chloride (Klor-Con 10) 40 meq PO ONETIME ONE Stop: 02/11/19 15:31 Last Admin: 02/11/19 16:26 Dose: 40 meq Potassium Chloride (Klor-Con 10) 40 meq PO ONETIME ONE Stop: 02/14/19 09:47 Last Admin: 02/14/19 10:39 Dose: 40 meq - Exam General: Alert, Oriented HEENT: Pupils Equal Neck: Supple Lungs: Clear to Auscultation Cardiovascular: Regular Rate, Regular Rhythm GI/Abdominal Exam: Normal Bowel Sounds, Soft, Non-Tender - Problem List Review Problem List Initiated/Reviewed/Updated: Yes - My Orders Last 24 Hours: My Active Orders 02/13/19 11:34 Codeine/guaiFENesin [Robitussin AC] 5 ml PO Q6H PRN 02/14/19 09:48 Consult to Physician [CONS] Routine 02/14/19 09:49 Notify Provider Consults [RC] ASDIRECTED 02/15/19 05:11 BASIC METABOLIC PANEL,BMP [CHEM] AM CBC W/O DIFF,HEMOGRAM [HEME] AM 02/16/19 05:11 BASIC METABOLIC PANEL,BMP [CHEM] AM CBC W/O DIFF,HEMOGRAM [HEME] AM 02/17/19 05:11 BASIC METABOLIC PANEL,BMP [CHEM] AM CBC W/O DIFF,HEMOGRAM [HEME] AM - Plan Plan:: 44-year-old presented with urinary burning. Urinary tract infection with pyelonephritis on the right side blood culture and urine culture positive for Escherichia coli; however different sensitivities with Urine culture pansensitive Escherichia coli, and blood culture Escherichia coli is resistant to some antibiotics Switched IV antibiotics to IV ciprofloxacin every 12 hours based on blood culture sensitivities Repeat blood culture 2 negative 2-D echo to rule out source of emboli Monitor vital signs Will plan for 7 days of IV antibiotics and then 7 days of oral ciprofloxacin if 2D echo shows no vegetation Severe Microcytic anemia s/p 2 units of pRBCs with Hb rising appropriately dizziness has resolved Discussed with Dr. Simpson who will see the patient today continue iron supplementation hemoccult negative, low suspicion for GI bleed. abdominal pain, likely dyspepsia abdominal pain is improved. continue Protonix DVT prophylaxis with subcutaneous heparin
[2019-02-14] MEDS: Acetaminophen 325 MG Tab PO PRN (16:06)
[2019-02-14] MEDS: Zolpidem 5 MG Tab PO PRN (21:39)
--- NOTE | 2019-02-14 21:46 | CONS ---
SERVICE DATE: 02/14/2019 HISTORY OF PRESENT ILLNESS: This patient is a 44-year-old 4, para 4 patient with 4 previous sections and the first section was for a "small pelvis." She has been followed previously by Dr. Petty a number of years back at this facility and also had 1 of her C-sections in [place]. The hospitalist today has asked me to do a Airplane Inspector consultation on her because of a history of menorrhagia. Menarche was at age 13. She did go for about 3 to 4 months this past winter without having a period at all and then in December and January, she did have a prolonged period that sometimes would last approximately 1 month at a time she states. She had large clots at times and a moderate amount of dysmenorrhea, and other times her bleeding would seem to taper off with just spotting. Then she did have an LMP on 02/08/2018 that lasted for 5 days and it was somewhat better or somewhat psychic reader than the 2 very heavy periods that she had in December and January. Her recent hemoglobin, however, was down to 6.7 and then did go up to 8.5 after transfusion, and then she had another transfusion of 2 packed cells last night apparently, and her hemoglobin is now stabilized at 9.0. Her bleeding has stopped in the last day or 2. She does have occasional hot flash sensations. She is not taking any oral iron. She does use condoms as a method for contraception. She does admit to weakness and lassitude and history of iron- deficiency anemia recently. She denies any syncope. She has never utilized any control pills recently, and she states that she does not want to try any low-dose oral contraceptives. She denies any knowledge of previous PID that she is aware of. She has used Depo-Provera injections previously. She states that she cannot recall when her last Pap smear was but thinks that it was probably normal a number of years ago. During this recent hospitalization, she was also admitted for pyelonephritis, and blood cultures did reveal that she had an E. coli septicemia. She now is afebrile and denies chills. OTHER PAST MEDICAL HISTORY: She denies any knowledge of heart, lung, liver, or kidney disease including denying any previous rheumatic fever that she is aware of. ALLERGIES: There are no known allergies. PAST SURGICAL HISTORY: Her previous surgery consists of 4 sections. MEDICATIONS: At present before coming into the hospital, she was not on any iron or other medications. She denies any depressive symptoms. FAMILY HISTORY: One sister may have possibly had a gynecologic cancer she thinks and did have a hysterectomy. One sister has had breast cancer previously as well. SOCIAL HISTORY: She lives in [place] with her boyfriend. She does smoke about 1 to 2 cigarettes every 2 days she states and says that her smoking is definitely less than before. She also lives with and takes care of her 3-year-old grandson at home. She uses alcohol only socially and very lightly. She denies the usage of any street drugs. PHYSICAL EXAMINATION: Vital Signs: Her vital signs are all within normal limits including pulse of 80. HEENT: The sclerae are nonicteric. Lungs: Clear to A. Heart: Regular rhythm without murmur. Abdomen: Soft and nontender in all quadrants. There are no palpable masses. There is some slight left CVA tenderness still. The right CVA area is negative for tenderness. We were not able to have her come to the clinic for optimal pelvic exam, but her sales enablement manager exam today is done over in the hospital. We have had to obtain Pap smear materials for this exam. The vulva is within normal limits. Vaginal secretions reveal no blood at present and secretions are physiologic. The cervix is negative for lesions and has a nulliparous appearance. Because of her 4 prior C- sections, we have taken a Pap smear today with spatula as well as endo brush. We will not do any endometrial biopsy because of her recent septicemia and bacteremia. On bimanual exam, the cervix is nontender to motion. The uterus is felt to be in the mid position and perhaps slightly enlarged to 6 weeks' size. It is nontender. I do not palpate any obvious fibroids. The adnexal areas are nontender bilaterally and no enlargement is appreciated. IMPRESSION: History of significant iron-deficiency anemia with recent hemoglobins in the 6.7 and 8.5 range and now it is at 9 after last night's last transfusion with 2 units of packed cells. The patient has not been on any oral iron. Today's Pap smear is apparently the first she has had in a number of years and those results are pending. We will obtain transvaginal pelvic ultrasound. I also suspect that in addition to her menorrhagia, she very likely has significant pelvic adhesions from 4 prior sections. The patient has been ambulating well without any syncope or weakness at present. PLAN: We will see what the results of her Pap smear and transvaginal pelvic ultrasound reveal. I do have the patient's cell phone number, and we will keep in close contact with her regarding re-evaluation. The patient may need future endometrial biopsy when she gets more distant from her recent bacteremia and septicemia with E. coli. Also, we will consider further consultation with one of our [place] tempering machine operator since the patient is requesting hysterectomy if at all possible. The patient will keep in close contact with us if and when her symptoms reoccur. This also appears to represent persistent dysfunctional uterine bleeding. Also we did thoroughly discuss with the patient that she take oral iron 1 p.o. b.i.d. when she leaves the hospital. Also, we emphasized the importance of healthy well-balanced nutritional measures such as high-protein diet as thoroughly discussed with her to help stabilize and raise her hemoglobin. [facility] /[id number]
[2019-02-15] MEDS: Heparin Sodium 5,000 Units/ML Vial SUBCUT SCH ×3 (05:46→22:26)
[2019-02-15] MEDS: Pantoprazole 40 MG Tab.CR PO SCH (05:46)
[2019-02-15 06:31] LABS: ANION GAP 14.3; CHLORIDE,CL 100 mmol/L (101-111); SODIUM,NA 135 mmol/L (135-145)
[2019-02-15] MEDS: Iron Polysaccharides Complex 150 MG Cap PO SCH (09:20)
[2019-02-15] MEDS: traMADol 50 MG Tab PO PRN (09:20)
[2019-02-15] MEDS: Ciprofloxacin in D5W 400 MG in Premix Bag 1 BAG IV SCH ×4 (09:42→20:54)
[2019-02-15] MEDS: Sodium Chloride 0.9% 10 ML Syringe FLUSH PRN (09:43)
--- NOTE | 2019-02-15 10:30 | PCM.PN ---
- General Info Date of Service: 02/15/19 Admission Dx/Problem (Free Text): Admission Diagnosis/Problem Admission Diagnosis/Problem Pyelonephritis Subjective Update: I saw and examined the patient at the bedside Afebrile overnight Feels much better this morning No new symptoms Abdominal pain is resolved - Review of Systems General: Reports: No Symptoms HEENT: Reports: No Symptoms Pulmonary: Reports: No Symptoms Cardiovascular: Reports: No Symptoms Gastrointestinal: Reports: No Symptoms Genitourinary: Reports: No Symptoms Musculoskeletal: Reports: No Symptoms Skin: Reports: No Symptoms - Patient Data Vitals - Most Recent: Last Vital Signs Temp 36.6 C 02/15/19 05:30 Pulse 71 02/15/19 05:30 Resp 20 02/15/19 05:30 BP 101/71 02/15/19 05:30 Pulse Ox 99 02/15/19 05:30 Weight - Most Recent: 75.16 kg I&O - Last 24 Hours: Intake & Output 02/14/19 02/15/19 02/15/19 22:59 06:59 14:59 Intake Total 600 1133 Output Total 1000 Balance 600 133 Lab Results Last 24 Hours: Laboratory Results - last 24 hr 02/15/19 02/15/19 Range/Units 03:43 05:50 WBC 6.7 (5.0-10.0) 10^3/uL RBC 4.20 (4.2-5.4) 10^6/uL Hgb 9.8 L (12.0-16.0) g/dL Hct 31.1 L (37.0-47.0) % MCV 74.0 L (80-100) fL MCH 23.3 L (27.0-34.0) pg MCHC 31.5 L (33.0-35.0) g/dL Plt Count 340 (150-450) 10^3/uL Sodium 135 (135-145) mmol/L Potassium 4.3 (3.6-5.0) mmol/L Chloride 100 L (101-111) mmol/L Carbon Dioxide 25.0 (21.0-31.0) mmol/L Anion Gap 14.3 BUN 6 L (7-18) mg/dL Creatinine 0.7 (0.6-1.3) mg/dL Est Cr Clr Drug Dosing 84.84 mL/min Estimated GFR (MDRD) > 60 Glucose 104 (74-105) mg/dL Calcium 8.5 (8.4-10.2) mg/dl Tej Results Last 24 Hours: Microbiology 02/10/19 00:18 Aerobic Blood Culture - Final Blood - Venous - Lab Draw NO GROWTH AFTER 5 DAYS Anaerobic Blood Culture - Final 02/10/19 00:15 Aerobic Blood Culture - Final Blood - Venous Escherichia Coli Anaerobic Blood Culture - Final NO GROWTH AFTER 5 DAYS 02/12/19 16:06 Aerobic Blood Culture - Preliminary Blood - Venous - Lab Draw NO GROWTH AFTER 2 DAYS Anaerobic Blood Culture - Preliminary NO GROWTH AFTER 2 DAYS 02/12/19 12:52 Aerobic Blood Culture - Preliminary Blood - Venous NO GROWTH AFTER 2 DAYS Anaerobic Blood Culture - Preliminary NO GROWTH AFTER 2 DAYS Med Orders - Current: Current Medications Acetaminophen (Tylenol) 650 mg PO Q4H PRN PRN Reason: Pain (Mild 1-3)/fever Last Admin: 02/14/19 16:06 Dose: 650 mg Docusate Sodium (Colace) 100 mg PO BID PRN PRN Reason: Constipation Last Admin: 02/12/19 19:58 Dose: 100 mg Guaifenesin/Codeine Phosphate (Robitussin Ac) 5 ml PO Q6H PRN PRN Reason: Cough Last Admin: 02/14/19 18:17 Dose: 5 ml Heparin Sodium (Porcine) (Heparin Sodium) 5,000 units SUBCUT Q8HR [facility] Last Admin: 02/15/19 05:46 Dose: 5,000 units Ciprofloxacin/Dextrose 400 mg/ (Premix) 200 mls @ 200 mls/hr IV Q12HR [facility] Last Admin: 02/15/19 09:42 Dose: 200 mls/hr Morphine Sulfate (Morphine) 2 mg IVPUSH Q2H PRN PRN Reason: Pain (severe 7-10) Last Admin: 02/13/19 21:32 Dose: 2 mg Ondansetron HCl (Zofran Odt) 4 mg PO Q6H PRN PRN Reason: nausea, able to take PO Pantoprazole Sodium (Protonix) 40 mg PO ACBREAKFAST [facility] Last Admin: 02/15/19 05:46 Dose: 40 mg Phenazopyridine HCl (Urinary Pain Relief) 95 mg PO TID PRN PRN Reason: Dysuria Last Admin: 02/12/19 13:17 Dose: 95 mg Polysaccharide Iron Complex (Ferrex 150) 150 mg PO DAILY [facility] Last Admin: 02/15/19 09:20 Dose: 150 mg Sodium Chloride (Saline Flush) 10 ml FLUSH ASDIRECTED PRN PRN Reason: Keep Vein Open Last Admin: 02/15/19 09:43 Dose: 10 ml Tramadol HCl (Ultram) 50 mg PO Q6H PRN PRN Reason: Pain (moderate 4-6) Last Admin: 02/15/19 09:20 Dose: 50 mg Zolpidem Tartrate (Ambien) 5 mg PO BEDTIME PRN PRN Reason: Sleep Last Admin: 02/14/19 21:39 Dose: 5 mg Discontinued Medications Hydromorphone HCl (Dilaudid) 1 mg IVPUSH ONETIME ONE Stop: 02/10/19 01:22 Last Admin: 02/10/19 01:28 Dose: 1 mg Sodium Chloride (Normal Saline) 1,000 mls @ 999 mls/hr IV .BOLUS ONE Stop: 02/10/19 01:06 Last Admin: 02/10/19 00:26 Dose: 999 mls/hr Ceftriaxone Sodium 1 gm/ (Sodium Chloride) 50 mls @ 50 mls/hr IV ONETIME ONE Stop: 02/10/19 01:58 Last Admin: 02/10/19 01:30 Dose: 50 mls/hr Sodium Chloride (Normal Saline) 1,000 mls @ 100 mls/hr IV ASDIRECTED [facility] Last Admin: 02/14/19 06:04 Dose: 100 mls/hr Ceftriaxone Sodium 1 gm/ (Sodium Chloride) 50 mls @ 50 mls/hr IV Q24H [facility] Last Admin: 02/11/19 20:32 Dose: 50 mls/hr Ibuprofen (Motrin) 400 mg PO Q6H PRN PRN Reason: Pain (moderate 4-6) Last Admin: 02/11/19 12:39 Dose: 400 mg Iopamidol (Isovue-300 (61%)) 75 ml IVPUSH ONETIME ONE Stop: 02/10/19 00:57 Last Admin: 02/10/19 01:10 Dose: 75 ml Ketorolac Tromethamine (Toradol) 30 mg IVPUSH ONETIME ONE Stop: 02/10/19 00:31 Last Admin: 02/10/19 00:35 Dose: 30 mg Pantoprazole Sodium (Protonix Iv) 40 mg IVPUSH Q12H [facility] Last Admin: 02/14/19 01:53 Dose: 40 mg Potassium Chloride (Klor-Con 10) 40 meq PO ONETIME ONE Stop: 02/10/19 05:27 Last Admin: 02/10/19 05:53 Dose: 40 meq Potassium Chloride (Klor-Con 10) 40 meq PO ONETIME ONE Stop: 02/11/19 15:31 Last Admin: 02/11/19 16:26 Dose: 40 meq Potassium Chloride (Klor-Con 10) 40 meq PO ONETIME ONE Stop: 02/14/19 09:47 Last Admin: 02/14/19 10:39 Dose: 40 meq - Exam General: Alert, Oriented HEENT: Pupils Equal Neck: Supple Lungs: Clear to Auscultation, Normal Respiratory Effort Cardiovascular: Regular Rate, Regular Rhythm GI/Abdominal Exam: Normal Bowel Sounds, Soft, Non-Tender (no CVA tenderness) Back Exam: No: CVA Tenderness (L), CVA Tenderness (R) Extremities: Normal Inspection, Normal Range of Motion - Problem List Review Problem List Initiated/Reviewed/Updated: Yes - My Orders Last 24 Hours: My Active Orders 02/14/19 09:48 Consult to Physician [CONS] Routine 02/14/19 09:49 Notify Provider Consults [RC] ASDIRECTED 02/15/19 06:00 Pantoprazole [ProTONIX] 40 mg PO ACBREAKFAST 02/16/19 05:11 BASIC METABOLIC PANEL,BMP [CHEM] AM CBC W/O DIFF,HEMOGRAM [HEME] AM 02/17/19 05:11 BASIC METABOLIC PANEL,BMP [CHEM] AM CBC W/O DIFF,HEMOGRAM [HEME] AM - Plan Plan:: 44-year-old presented with urinary burning. Urinary tract infection with pyelonephritis on the right side blood culture and urine culture positive for Escherichia coli; however different sensitivities with Urine culture pansensitive Escherichia coli, and blood culture Escherichia coli is resistant to some antibiotics Switched IV antibiotics to IV ciprofloxacin every 12 hours based on blood culture sensitivities Repeat blood culture 2 negative 2-D echo to rule out source of emboli Monitor vital signs Will plan for 7 days of IV antibiotics and then 7 days of oral ciprofloxacin if 2D echo shows no vegetation Severe Microcytic anemia Menorrhagia s/p 2 units of pRBCs with Hb rising appropriately dizziness has resolved Gynae consult appreciated. Will f/u with gynae clinic continue iron supplementation hemoccult negative, low suspicion for GI bleed. DVT prophylaxis with subcutaneous heparin
[2019-02-15] MEDS: Codeine/guaiFENesin 100-10 MG/5 ML Syrup 5 ML Cup PO PRN (20:52)
[2019-02-15] MEDS: Zolpidem 5 MG Tab PO PRN (22:26)
[2019-02-16] MEDS: Heparin Sodium 5,000 Units/ML Vial SUBCUT SCH (06:01)
[2019-02-16] MEDS: Pantoprazole 40 MG Tab.CR PO SCH (06:01)
[2019-02-16 06:34] LABS: ANION GAP 15.3; CHLORIDE,CL 101 mmol/L (101-111); SODIUM,NA 136 mmol/L (135-145)
[2019-02-16] MEDS: Iron Polysaccharides Complex 150 MG Cap PO SCH (08:38)
[2019-02-16] MEDS: Ciprofloxacin in D5W 400 MG in Premix Bag 1 BAG IV SCH ×2 (08:38)
--- NOTE | 2019-02-16 10:14 | PCM.DCSUM1 ---
Discharge Summary - Hospital Course Free Text/Narrative:: 44-year-old female with no significant PMH who presented with dysuria. She was started on empirically on IV ceftriaxone. Sepsis, Pyelonephritis Blood culture and urine culture positive for Escherichia coli; however different sensitivities with Urine culture pansensitive Escherichia coli, and blood culture Escherichia coli is resistant to ceftriaxone. She was switched to IV ciprofloxacin every 12 hours based on blood culture sensitivities. Repeat blood culture 2 negative. 2-D echo to rule out source of emboli was done and negative. She was given 7 days of IV antibiotics and then discharged on 7 days of oral ciprofloxacin. Follow up with PCP Severe Microcytic anemia Menorrhagia She was also found to be severely anemic 2/2 chronic menorrhagia s/p 2 units of pRBCs with Hb rising appropriately Gynecology service was consulted and evaluated the patient. Pelvic US showed uterine fibroids. Will f/u with gynae clinic continue oral iron supplementation Diagnosis: Stroke: No - Discharge Data Discharge Date: 02/16/19 Discharge Disposition: Home, Self-Care 01 Condition: Stable - Patient Summary/Data Consults: Consultations 02/14/19 09:48 Consult to Physician [CONS] Routine - Patient Instructions Diet: Usual Diet as Tolerated Activity: As Tolerated - Discharge Plan *PRESCRIPTION DRUG MONITORING PROGRAM REVIEWED*: No *COPY OF PRESCRIPTION DRUG MONITORING REPORT IN PATIENT DMITRY: No Prescriptions/Med Rec: Ciprofloxacin [Ciprofloxacin HCl] 500 mg PO BID 7 Days #14 tab Ferrous Sulfate 325 mg PO TID 30 Days #90 tablet Home Medications: Home Meds Ciprofloxacin [Ciprofloxacin HCl] 500 mg PO BID 7 Days #14 tab 02/16/19 [Rx] Ferrous Sulfate 325 mg PO TID 30 Days #90 tablet 02/16/19 [Rx] Oxygen Therapy Mode: Room Air Referrals: PCP,Unobtain [Primary Care Provider] - - Discharge Summary/Plan Comment DC Time >30 min.: Yes - General Info Date of Service: 02/16/19 Admission Dx/Problem (Free Text: Admission Diagnosis/Problem Admission Diagnosis/Problem Pyelonephritis Subjective Update: I saw and examined the patient at the bedside Afebrile overnight Feels much better this morning No new symptoms Abdominal pain is resolved - Review of Systems General: Reports: No Symptoms. Denies: Fever HEENT: Reports: No Symptoms Pulmonary: Reports: No Symptoms. Denies: Shortness of Breath Cardiovascular: Reports: No Symptoms. Denies: Chest Pain Gastrointestinal: Reports: No Symptoms. Denies: Abdominal Pain Genitourinary: Reports: No Symptoms. Denies: Dysuria Musculoskeletal: Reports: No Symptoms Skin: Reports: No Symptoms Neurological: Reports: No Symptoms - Patient Data Vitals - Most Recent: Last Vital Signs Temp 36.6 C 02/16/19 07:20 Pulse 68 02/16/19 07:20 Resp 20 02/16/19 07:20 BP 122/63 02/16/19 07:20 Pulse Ox 99 02/16/19 07:20 Weight - Most Recent: 75.16 kg I&O - Last 24 hours: Intake & Output 02/15/19 02/16/19 02/16/19 22:59 06:59 14:59 Intake Total 760 440 Output Total 900 Balance -140 440 Lab Results - Last 24 hrs: Laboratory Results - last 24 hr 02/16/19 02/16/19 Range/Units 05:55 05:55 WBC 6.6 (5.0-10.0) 10^3/uL RBC 4.66 (4.2-5.4) 10^6/uL Hgb 10.6 L (12.0-16.0) g/dL Hct 34.1 L (37.0-47.0) % MCV 73.2 L (80-100) fL MCH 22.7 L (27.0-34.0) pg MCHC 31.1 L (33.0-35.0) g/dL Plt Count 413 (150-450) 10^3/uL Sodium 136 (135-145) mmol/L Potassium 4.3 (3.6-5.0) mmol/L Chloride 101 (101-111) mmol/L Carbon Dioxide 24.0 (21.0-31.0) mmol/L Anion Gap 15.3 BUN 10 (7-18) mg/dL Creatinine 0.6 (0.6-1.3) mg/dL Est Cr Clr Drug Dosing 98.98 mL/min Estimated GFR (MDRD) > 60 Glucose 88 (74-105) mg/dL Calcium 8.8 (8.4-10.2) mg/dl JAZZY Results - Last 24 hrs: Microbiology 02/12/19 16:06 Aerobic Blood Culture - Preliminary Blood - Venous - Lab Draw NO GROWTH AFTER 3 DAYS Anaerobic Blood Culture - Preliminary NO GROWTH AFTER 3 DAYS 02/12/19 12:52 Aerobic Blood Culture - Preliminary Blood - Venous NO GROWTH AFTER 3 DAYS Anaerobic Blood Culture - Preliminary NO GROWTH AFTER 3 DAYS Med Orders - Current: Current Medications Acetaminophen (Tylenol) 650 mg PO Q4H PRN PRN Reason: Pain (Mild 1-3)/fever Last Admin: 02/14/19 16:06 Dose: 650 mg Docusate Sodium (Colace) 100 mg PO BID PRN PRN Reason: Constipation Last Admin: 02/12/19 19:58 Dose: 100 mg Guaifenesin/Codeine Phosphate (Robitussin Ac) 5 ml PO Q6H PRN PRN Reason: Cough Last Admin: 02/15/19 20:52 Dose: 5 ml Heparin Sodium (Porcine) (Heparin Sodium) 5,000 units SUBCUT Q8HR [facility] Last Admin: 02/16/19 06:01 Dose: 5,000 units Ciprofloxacin/Dextrose 400 mg/ (Premix) 200 mls @ 200 mls/hr IV Q12HR [facility] Last Admin: 02/16/19 08:38 Dose: 200 mls/hr Morphine Sulfate (Morphine) 2 mg IVPUSH Q2H PRN PRN Reason: Pain (severe 7-10) Last Admin: 02/13/19 21:32 Dose: 2 mg Ondansetron HCl (Zofran Odt) 4 mg PO Q6H PRN PRN Reason: nausea, able to take PO Pantoprazole Sodium (Protonix) 40 mg PO ACBREAKFAST [facility] Last Admin: 02/16/19 06:01 Dose: 40 mg Phenazopyridine HCl (Urinary Pain Relief) 95 mg PO TID PRN PRN Reason: Dysuria Last Admin: 02/12/19 13:17 Dose: 95 mg Polysaccharide Iron Complex (Ferrex 150) 150 mg PO DAILY [facility] Last Admin: 02/16/19 08:38 Dose: 150 mg Sodium Chloride (Saline Flush) 10 ml FLUSH ASDIRECTED PRN PRN Reason: Keep Vein Open Last Admin: 02/15/19 09:43 Dose: 10 ml Tramadol HCl (Ultram) 50 mg PO Q6H PRN PRN Reason: Pain (moderate 4-6) Last Admin: 02/15/19 09:20 Dose: 50 mg Zolpidem Tartrate (Ambien) 5 mg PO BEDTIME PRN PRN Reason: Sleep Last Admin: 02/15/19 22:26 Dose: 5 mg Discontinued Medications Hydromorphone HCl (Dilaudid) 1 mg IVPUSH ONETIME ONE Stop: 02/10/19 01:22 Last Admin: 02/10/19 01:28 Dose: 1 mg Sodium Chloride (Normal Saline) 1,000 mls @ 999 mls/hr IV .BOLUS ONE Stop: 02/10/19 01:06 Last Admin: 02/10/19 00:26 Dose: 999 mls/hr Ceftriaxone Sodium 1 gm/ (Sodium Chloride) 50 mls @ 50 mls/hr IV ONETIME ONE Stop: 02/10/19 01:58 Last Admin: 02/10/19 01:30 Dose: 50 mls/hr Sodium Chloride (Normal Saline) 1,000 mls @ 100 mls/hr IV ASDIRECTED [facility] Last Admin: 02/14/19 06:04 Dose: 100 mls/hr Ceftriaxone Sodium 1 gm/ (Sodium Chloride) 50 mls @ 50 mls/hr IV Q24H [facility] Last Admin: 02/11/19 20:32 Dose: 50 mls/hr Ibuprofen (Motrin) 400 mg PO Q6H PRN PRN Reason: Pain (moderate 4-6) Last Admin: 02/11/19 12:39 Dose: 400 mg Iopamidol (Isovue-300 (61%)) 75 ml IVPUSH ONETIME ONE Stop: 02/10/19 00:57 Last Admin: 02/10/19 01:10 Dose: 75 ml Ketorolac Tromethamine (Toradol) 30 mg IVPUSH ONETIME ONE Stop: 02/10/19 00:31 Last Admin: 02/10/19 00:35 Dose: 30 mg Pantoprazole Sodium (Protonix Iv) 40 mg IVPUSH Q12H [facility] Last Admin: 02/14/19 01:53 Dose: 40 mg Potassium Chloride (Klor-Con 10) 40 meq PO ONETIME ONE Stop: 02/10/19 05:27 Last Admin: 02/10/19 05:53 Dose: 40 meq Potassium Chloride (Klor-Con 10) 40 meq PO ONETIME ONE Stop: 02/11/19 15:31 Last Admin: 02/11/19 16:26 Dose: 40 meq Potassium Chloride (Klor-Con 10) 40 meq PO ONETIME ONE Stop: 02/14/19 09:47 Last Admin: 02/14/19 10:39 Dose: 40 meq - Exam General: Reports: Alert, Oriented HEENT: Reports: Pupils Equal Neck: Reports: Supple Lungs: Reports: Clear to Auscultation, Normal Respiratory Effort Cardiovascular: Reports: Regular Rate, Regular Rhythm GI/Abdominal Exam: Normal Bowel Sounds, Soft, Non-Tender Back Exam: Denies: CVA Tenderness (L), CVA Tenderness (R)
[2019-02-16 12:47] VITALS: BP 121/64
== END 2019-02-16 13:00 | disposition home or self-care (01) | DRG 872 ==
LOC: DL.ED 23:44 → UNDOADMIN 02-10 02:21 → DL.MS 02-10 02:21
PROVIDERS: ADMIT Internal Medicine; ATTEND Hospitalist
PROC: 30233N1 Transfusion of Nonautologous Red Blood Cells into Peripheral Vein, Percutaneous Approach (ICD-10-PCS; principal; 2019-02-13)
DX: A41.9 Sepsis, unspecified organism (principal); N12 Tubulo-interstitial nephritis, not specified as acute or chronic; H54.7 Unspecified visual loss; F17.210 Nicotine dependence, cigarettes, uncomplicated; D50.0 Iron deficiency anemia secondary to blood loss (chronic); E87.6 Hypokalemia; B96.20 Unspecified Escherichia coli [E. coli] as the cause of diseases classified elsewhere; N92.0 Excessive and frequent menstruation with regular cycle
CPT/HCPCS: 36415; 36430; 51798; 74177; 76856; 80048; 80053; 80305-QW; 81001; 81025; 82272; 82607; 82728; 82746; 83540; 83550; 83605; 85025; 85027; 86140; 86850; 86900; 86901; 86920; 86922; 87040; 87077; 87086; 87088; 87186; 93306; 96361; 96365; 96375; 99284; 99285-25; A4217; A9270-GY; C9113; G0480; J0696; J0744; J1170; J1644; J1885; J2270; J7030; J7050; P9016; Q9967